=== PATIENT | male | born 1945 | race Caucasian/White ===

== ENCOUNTER 2021-06-11 11:13 | Emergency (ER) | payer MEDICARE, OTHER, SELFPAY ==
[2021-06-11 11:15] VITALS: BP 115/56; PULSE 56; RESP 14; TEMP 36.5; O2SAT 99; BMI 27.3
--- NOTE | 2021-06-11 14:57 | EX.ED.DYSGE1 ---
HPI History of Present Illness Chief Complaint: Cold Sx Informant: patient Onset/Context/Timing Onset: Weeks (1) Context: Gradual Onset Timing: Continuous Quality: malaise, cough Current Severity: Moderate Maximum Severity: Moderate Worsened by: nothing Relieved by: nothing Associated Symptoms Associated Symptoms: myalgias Narrative Narrative: Patient has been had symptoms for 1 week and he had a positive home Covid test yesterday. It said he should see a doctor, so today he presents for evaluation. He has had no dyspnea or diarrhea. He has been drinking fluids. He was vaccinated against Covid. He denies any known fevers. Recent Illness/Hospitalization: No PFSH PFSH Medical History Diabetes Hypercholesteremia Hypertension Allergy/AdvReac Type Severity Reaction Status Date / Time No Known Allergies Allergy Verified 06/11/21 11:17 Social History Smoking Status: Never smoker ROS ROS ED Constitutional Constitutional ED: Reports body ache(s) and malaise; Denies chills or fever(s) Eyes Eyes: Denies change in vision or diplopia ENT ENT ED: Denies rhinorrhea or sore throat Cardiovascular Cardiovascular: Denies chest pain or palpitations Respiratory/Chest Respiratory/Chest: Reports cough; Denies dyspnea or dyspnea on exertion Gastrointestinal Gastrointestinal: Denies abdominal pain, diarrhea, nausea or vomiting Genitourinary Genitourinary ED: Denies dysuria or hematuria Musculoskeletal Musculoskeletal: Denies back pain or neck pain Integumentary Denies abscess or rash Neurologic Neurologic: Denies headache(s), paresthesias or weakness Psychiatric Psychiatric: Denies anxiety or suicidal thoughts EXAM Physical Exam Const Vital Signs: 06/11/21 11:15 06/11/21 13:18 Temperature 97.7 F L Temperature Source Temporal Pulse Rate 56 L Respiratory Rate 14 Respiratory Effort Normal Respiratory Pattern Normal Blood Pressure 115/56 L Blood Pressure Mean 75 Pulse Ox 99 Oxygen Delivery Method Room Air Positive well nourished and well developed General Appearance ED: well developed and NAD HEENT Reports moist mucous membranes normocephalic and atraumatic Eyes PERRL and EOMs intact bilaterally Neck full ROM, no lymphadenopathy, supple and no meningeal signs Resp normal respiratory effort and clear to auscultation bilaterally Cardio regular rate, regular rhythm and no murmurs GI non-tender and non-distended Auscultation: normoactive bowel sounds Palpation: soft Back/Spine no CVA tenderness General Back: other FROM Extremity normal to inspection General Extremety ED: Negative for edema, pulses abnormal or tenderness General Extremity: Negative for edema or pulses abnormal Neuro oriented x3, CN's II-XII intact bilaterally and no sensory deficits noted Sensorium / Orientation: awake and alert Motor Exam: strength 5/5 throughout Skin no rashes or lesions noted and no wounds MDM MDM MDM Narrative Medical decision making narrative: Patient is not tachycardic and his oxygenation is excellent. We performed a rapid test to confirm that he has Covid so that he will qualify for monoclonal antibody infusion, since he has had symptoms for 7 days and is over the age of 65 with history of hypertension and diabetes, he qualifies for all 3 of those reasons. He was referred to the monoclonal antibody clinic, he was given appropriate discharge instructions regarding this and isolation, care for himself, home pulse oximetry monitoring, and reasons to return. Discharge Plan Triage Chief Complaint: Cold Sx ED Provider: Kurt Bethea Dx/Rx/DC Orders Clinical Impression: COVID-19 Instructions: Coronavirus Disease 2019 (COVID-19): Caring for Yourself or Others, ED - COVID Monoclonal AB Infusion ... Other Ambulatory Orders: COVID Outpatient Monoclonal Antibody Referral (Routine) Timeframe: 1 Day Facility: [facility] - Location: [facility] Ordered By: Dr. Kurt Bethea Primary Care Provider: Care Physician,No Primary Referrals: Care Physician,No Primary [Primary Care Provider] - Doctor,Your [STAFF PHYSICIAN] - As Needed Activity Restrictions/Additional Instructions: Try to get a home portable pulse oximeter and closely watch your oxygen levels periodically. If you stay below 90% for more than a minute or so, and/or you are feeling like your breathing is getting worse, return to the emergency department for further evaluation. Disposition Disposition: Home, Self Care
[2021-06-11 15:12] VITALS: BP 122/64; PULSE 55; RESP 16; O2SAT 96
== END 2021-06-11 15:21 | disposition home or self-care (01) ==
PROVIDERS: Emergency Provider Emergency Medicine
DX: U07.1 COVID-19 (principal); E11.9 Type 2 diabetes mellitus without complications; I10 Essential (primary) hypertension
CPT/HCPCS: 87426; 99282

== ENCOUNTER 2021-06-14 15:39 | Inpatient (IN) | payer MEDICARE, OTHER, SELFPAY ==
[2021-06-14] VITALS (10 sets, daily range): BP systolic 94–125; BP diastolic 38–68; PULSE 27–108; RESP 18–48; TEMP 36.3–37.7; O2SAT 94–99; BMI 24.3; BMI 24.9
--- NOTE | 2021-06-14 16:01 | RAD_ITS ---
STUDY: X-RAY CHEST REASON FOR EXAM: Male, 75 years old. cough TECHNIQUE: AP COMPARISON: None FINDINGS: EKG leads project over the chest. Multifocal infiltrates with features commonly reported with COVID pneumonia. There is no demonstrated pleural abnormality. Normal size heart. Normal mediastinum and thomas. Normal visualized pulmonary arteries. There is atherosclerotic calcification of the aortic arch with tortuosity. Normal visualized thoracic spine. Normal visualized ribs, clavicles, and shoulders. There is no demonstrated abnormality of the visualized soft tissue structures of the upper abdomen. RAD/Chest 1 View (Portable) IMPRESSION: Multifocal infiltrates with features commonly reported with COVID pneumonia, although nonspecific. Electronically Signed: Bradley Herr MD ([place]) at 17:32 EST , Service support ,
--- NOTE | 2021-06-14 16:01 | EKG12_ITS ---
Test Reason : COVID 19, SOB Blood Pressure : / mmHG Vent. Rate : 083 BPM Atrial Rate : 083 BPM P-R Int : 174 ms QRS Dur : 118 ms QT Int : 416 ms P-R-T Axes : -16 042 016 degrees QTc Int : 488 ms Normal sinus rhythm Low voltage QRS Right bundle branch block Inferior infarct , age undetermined , cannot be excluded Nonspecific T wave abnormality Abnormal ECG Confirmed by SE GIRON, YANN ([id number]), photography editor IVONNE HAYNES ([id number]) on 06/16/2021 12:21:59 PM Referred By: MILLI Confirmed By:YANN SAEZ MD
--- NOTE | 2021-06-14 16:08 | NURSING ---
NO OLD EKGS
[2021-06-14 16:12] LABS: Absolute Lymphocyte Count 0.99 X10^3/uL (0.83-4.51); Absolute Neutrophil Count 5.5 X10^3/uL (2.0-7.7); Basophil# 0.02 X10^3/uL; Basophil% 0.3 % (0-1); Hematocrit 35.8 % (40-54); Hemoglobin 11.3 g/dL (13.0-16.5); Lymphocyte # 0.99 X10^3/ul (0.83-4.51); Lymphocyte % 14.5 % (19-41); Mean Corp Hgb Conc 31.6 g/dL (32-36); Mean Corpuscular Volume 88.8 fL (80-94); Mean Platelet Vol. 9.7 fl (6.2-12.0); Monocyte# 0.21 X10^3/uL; Monocyte% 3.1 % (0-10); NRBC Flagged by Analyzer 0 % (0-5); Neutrophil # 5.54 X10^3/uL (2.7-7.7); Neutrophil % 81.1 % (47-70); POSITIVE MORPHOLOGY YES; Platelet Count 195 K/mm3 (150-450); RBC Distribution Width CV 13.8 % (11.6-14.6); RBC Distribution Width SD 45.2 fl (35.1-43.9); Red Blood Count 4.03 M/mm3 (4.6-6.2); White Blood Count 6.8 K/mm3 (4.4-11.0)
[2021-06-14 16:19] LABS: Differential Indicated SCAN CRITERIA MET
[2021-06-14 16:21] LABS: D-Dimer Quantitative (DVT/PE) 2.21 FEU/ug/m (0.27-0.49)
[2021-06-14 16:35] LABS: ALB/GLOB Ratio 0.5 RATIO (0.9-2.4); AST(SGOT) 93 U/L (15-37); Alanine Aminotransfer ALT/SGPT 37 U/L (16-61); Albumin, Serum 2.6 g/dL (3.2-5.0); Alkaline Phosphatase 54 U/L (45-117); Anion Gap 17 (5-15); BUN 21 mg/dL (7-18); BUN/Creat Ratio 9.1 RATIO (10-20); Calcium,Total 9.8 mg/dL (8.5-10.1); Chloride 102 mmol/L (98-107); EST Glomerular Filtration Rate 30 mL/min (>60); Est Glom Filt Rate - Afr Amer 36 mL/min (>60); Globulin 4.9 g/dL (2.2-4.2); Glucose 97 mg/dL (74-106); Potassium 3.6 mmol/L (3.5-5.1); Protein, Total 7.5 g/dL (6.4-8.2); Sodium Level 135 mmol/L (136-145); Troponin-I HS 40 pg/mL (3.0-78.0)
[2021-06-14 16:38] LABS: Lactic Acid 3.9 mmol/L (0.4-1.9)
--- NOTE | 2021-06-14 16:42 | ED.VIS.DYS ---
HPI History of Present Illness Chief Complaint: Shortness of Breath Informant: spouse/S.O. Onset/Context/Timing Onset: Days (3) Context: gradual Timing: Continuous Quality: Positive for Dyspnea on exertion Worsened by: Exertion Relieved by: Rest Associated Symptoms Chest Pain: Positive for None Narrative Narrative: Patient presents with shortness of breath that has been getting worse over the past 3 days. states it is gradually getting worse. states his breathing is worse with any exertion and better with rest. states patient has had a cough but has not produced any sputum. states the patient was complaining of a sore throat earlier this week from coughing. states patient has been having some subjective chills denies any fevers or chest pain. Patient and his recently traveled to [place] for his son's . PE Risk Factors: Positive for Cancer and Recent travel; Negative for Recent immobilization and Recent surgery [facility] Medical History (Updated 06/14/21 @ 16:[address] Raheem Petty DO) Diabetes Hypercholesteremia Hypertension Prostate cancer Skin cancer Allergy/AdvReac Type Severity Reaction Status Date / Time No Known Allergies Allergy Verified 06/11/21 11:17 Surgical History (Updated 06/14/21 @ 16:[address] Raheem Petty DO) Hx of rotator cuff surgery Social History Smoking Status: Never smoker ROS ROS ED Constitutional Constitutional ED: Reports chills; Denies fever(s) Eyes Eyes: Denies blurry vision or change in vision ENT ENT ED: Reports sore throat; Denies rhinorrhea Cardiovascular Cardiovascular: Denies chest pain or palpitations Respiratory/Chest Respiratory/Chest: Reports cough and dyspnea Gastrointestinal Gastrointestinal: Denies nausea or vomiting Genitourinary Genitourinary ED: Denies dysuria or hematuria Musculoskeletal Musculoskeletal: Denies back pain or neck pain Integumentary Denies abscess or rash Neurologic Neurologic: Denies headache(s) or weakness Allergic/Immunologic Allergic/Immunologic ED: Denies mouth swelling or urticaria EXAM Physical Exam Const Vital Signs: 06/14/21 15:41 Temperature 98.1 F Temperature Source Oral Pulse Rate 87 Respiratory Rate 24 H Blood Pressure 94/48 L Blood Pressure Mean 63 Pulse Ox 94 Oxygen Delivery Method Room Air Positive well nourished and well developed General Appearance ED: well developed HEENT Reports moist mucous membranes Neck supple and no JVD Resp normal respiratory effort Auscultation: diminished lung sounds diffuse Cardio regular rate and regular rhythm GI non-tender and non-distended Auscultation: normoactive bowel sounds Palpation: soft Neuro CN's II-XII intact bilaterally and no sensory deficits noted Sensorium / Orientation: alert Motor Exam: strength 5/5 throughout MDM MDM MDM Narrative Medical decision making narrative: Patient was given IV fluids and albuterol inhaler. CBC shows a mild anemia with a hemoglobin of 11.3 hematocrit 35.8. D-dimer was elevated at 2.21. Comprehensive metabolic profile showed a BUN of 21 and creatinine of 2.30. There are no prior values for comparison. CO2 was low at 16 and anion gap was elevated at 17. This is likely due to the lactic acidosis. Lactate was elevated at 3.9. Lab Data Labs: Laboratory Results - last 24 hr 06/14/21 06/14/21 06/14/21 15:30 15:30 15:30 WBC 6.8 RBC 4.03 L Hgb 11.3 L Hct 35.8 L MCV 88.8 MCH 28.0 MCHC 31.6 L RDW Std Deviation 45.2 H RDW Coeff of Tiffanie 13.8 Plt Count 195 MPV 9.7 Immature Gran % (Auto) 1.000 H Neut % (Auto) 81.1 H Lymph % (Auto) 14.5 L [place] % (Auto) 3.1 Eos % (Auto) 0.0 Baso % (Auto) 0.3 Absolute Neuts (auto) 5.5 Absolute Lymphs (auto) 0.99 Nucleated RBC % 0 D-Dimer Quant (PE/DVT) 2.21 H* Sodium 135 L Potassium 3.6 Chloride 102 Carbon Dioxide 16.0 L Anion Gap 17 H BUN 21 H Creatinine 2.30 H Estim Creat Clear Calc 29.10 Est GFR (MDRD) Af Amer 36 L Est GFR (MDRD) Non-Af 30 L BUN/Creatinine Ratio 9.1 L Glucose 97 Lactic Acid Calcium 9.8 Total Bilirubin 0.90 AST 93 H ALT 37 Alkaline Phosphatase 54 Troponin I High Sens 40 Total Protein 7.5 Albumin 2.6 L Globulin 4.9 H Albumin/Globulin Ratio 0.5 L 06/14/21 15:30 WBC RBC Hgb Hct MCV MCH MCHC RDW Std Deviation RDW Coeff of Tiffanie Plt Count MPV Immature Gran % (Auto) Neut % (Auto) Lymph % (Auto) [place] % (Auto) Eos % (Auto) Baso % (Auto) Absolute Neuts (auto) Absolute Lymphs (auto) Nucleated RBC % D-Dimer Quant (PE/DVT) Sodium Potassium Chloride Carbon Dioxide Anion Gap BUN Creatinine Estim Creat Clear Calc Est GFR (MDRD) Af Amer Est GFR (MDRD) Non-Af BUN/Creatinine Ratio Glucose Lactic Acid 3.9 H* Calcium Total Bilirubin AST ALT Alkaline Phosphatase Troponin I High Sens Total Protein Albumin Globulin Albumin/Globulin Ratio EKG Initial EKG: Attestation: I personally reviewed and interpreted this EKG as follows: Interpretation: Sinus Rhythm (83), RBBB and Non-Specific ST Changes Prior EKG tracings: not available for review Discharge Plan Triage Chief Complaint: Shortness of Breath ED Provider: Raheem Petty Dx/Rx/DC Orders Primary Care Provider: Ricky Henriquez Referrals: Ricky Henriquez MD [Primary Care Provider] -
[2021-06-14 16:47] LABS: Differential Comment SCANNED
[2021-06-14] MEDS: Enoxaparin 80 MG/0.8 ML Syringe SC (18:39)
--- NOTE | 2021-06-14 19:17 | HP.PCM.HOS_ITS ---
HPI - General HPI Narrative CHRISTIN LY, is a 75 M who presents to the hospital with weakness and increasing dyspnea on exertion and shortness of breath. According to him and his , he started getting sick around 06/05/2021 and had a Covid test at home on 06/10/2021 which came back positive. As he was coughing he came to the hosp ital on 06/11/2021 and has a positive Covid test at that time as well. He was discharged home as at that time he did not require any oxygen to have outpatient follow-up and a referral for monoclonal antibody infusion. Unfortunately he was not able to receive the antibody infusion as he became weaker and was unable to get out of bed in time to go to the bathroom and had accident in the bed. He is still not requiring any oxygen however his p.o. intake has declined significantly and he has what appears to be an JARRED with a creatinine of 2.3 however we do not have any previous lab values for comparison. He also does appear to be acidotic with a bicarb of 16 and anion gap of 17 and a lactic acid of 3.9, blood sugars are normal. Of note he was given a dose of therapeutic Lovenox because his creatinine was elevated to 2.3, and his D-dimer was elevated to 2.21. We are unable to get a CTA of his lungs at this time and unfortunately his chest x-ray is being read as multifocal infiltrates therefore having an abnormal chest x-ray a VQ scan would not be of value either. Given his weakness and his JARRED, will admit for conservative IV fluids and possible placement. [facility] Medical History Diabetes Hypercholesteremia Hypertension Prostate cancer Skin cancer Home Medications abiraterone 1,000 mg PO DAILY 06/14/21 [History Last Taken 3 Days Ago ~06/11/21] dulaglutide [Trulicity] 1.5 mg SUBCUT SA 06/14/21 [History Last Taken 06/04/21] furosemide 20 mg PO DAILY 06/14/21 [History Last Taken 3 Days Ago ~06/11/21] gemfibrozil 600 mg PO BID 06/14/21 [History Last Taken 3 Days Ago ~06/11/21] lisinopril 20 mg PO DAILY 06/14/21 [History Last Taken 3 Days Ago ~06/11/21] metformin 850 mg PO BID 06/14/21 [History Last Taken 3 Days Ago ~06/11/21] metoprolol succinate 100 mg PO DAILY 06/14/21 [History Last Taken 3 Days Ago ~06/11/21] pantoprazole 40 mg PO DAILY 06/14/21 [History Last Taken 3 Days Ago ~06/11/21] prednisone 5 mg PO BID 06/14/21 [History Last Taken 3 Days Ago ~06/11/21] rosuvastatin 20 mg PO DAILY 06/14/21 [History Last Taken 3 Days Ago ~06/11/21] Allergy/AdvReac Type Severity Reaction Status Date / Time No Known Allergies Allergy Verified 06/11/21 11:17 Family History (Updated 06/14/21 @ 19:[address] Randy Kathleen MD) Other Diabetes Heart disease Surgical History Hx of rotator cuff surgery Social History Smoking Status: Never smoker ROS Constitutional Constitutional: Reports chills; Denies fatigue, fever(s) or malaise Eyes Eyes: Denies blurry vision ENT HEENT: Denies headache(s) or nasal discharge Cardiovascular Cardiovascular: Reports dyspnea on exertion; Denies chest pain or syncope Respiratory/Chest Respiratory/Chest: Reports cough and shortness of breath at rest; Denies shortness of breath with exertion Gastrointestinal Gastrointestinal: Denies constipation, diarrhea, nausea or vomiting Genitourinary Genitourinary: Denies dysuria Neurologic Neurologic: Denies focal weakness, numbness or tremor(s) Psychiatric Psychiatric: Denies anxiety or depression Vital Signs Vital Signs Vital Signs: 06/14/21 15:41 06/14/21 17:08 06/14/21 17:13 Temperature 98.1 F 98.1 F Temperature Source Oral Oral Pulse Rate 87 84 Respiratory Rate 24 H 22 H Respiratory Effort Normal Respiratory Depth Normal Respiratory Pattern Normal Blood Pressure 94/48 L 108/38 L Blood Pressure Mean 63 61 Pulse Ox 94 96 Oxygen Delivery Method Room Air Room Air Room Air 06/14/21 18:46 Temperature 98.6 F Temperature Source Oral Pulse Rate 27 L Respiratory Rate 26 H Respiratory Effort Respiratory Depth Respiratory Pattern Blood Pressure 105/44 L Blood Pressure Mean 64 Pulse Ox 97 Oxygen Delivery Method Room Air Weight Weight: 174 lb 6.17 oz Body Mass Index (BMI) 24.3 Physical Exam Const alert and oriented x3 General Appearance: cooperative and ill appearing HEENT normocephalic Mouth: dry mucous membranes Eyes PERRL, EOMs intact bilaterally and conjunctivae normal Neck supple and no JVD Resp normal respiratory effort, no retractions and no use of accessory muscles Auscultation: diminished lung sounds; Negative for crackles, rales, rhonchi or wheezes Cardio regular rate, regular rhythm, S1 normal heart sound, S2 normal heart sound and no murmurs GI soft to palpation, non-tender and non-distended; Negative for hepatosplenomegaly Extremity no clubbing, cyanosis or edema Skin no rashes or lesions noted Neuro no focal motor deficits and no sensory deficits noted Psych affect normal Appearance: appropriate Results Lab / Micro Data Result Diagrams: 06/14/21 15:30 06/14/21 15:30 Labs: Laboratory Results - last 24 hr 06/14/21 15:30: WBC 6.8, RBC 4.03 L, Hgb 11.3 L, Hct 35.8 L, MCV 88.8, MCH 28.0, MCHC 31.6 L, RDW Std Deviation 45.2 H, RDW Coeff of Tiffanie 13.8, Plt Count 195, MPV 9.7, Immature Gran % (Auto) 1.000 H, Neut % (Auto) 81.1 H, Lymph % (Auto) 14.5 L , [place] % (Auto) 3.1, Eos % (Auto) 0.0, Baso % (Auto) 0.3, Absolute Neuts (auto) 5.5, Absolute Lymphs (auto) 0.99, Nucleated RBC % 0, Differential Comment SCANNED 06/14/21 15:30: D-Dimer Quant (PE/DVT) 2.21 H* 06/14/21 15:30: Sodium 135 L, Potassium 3.6, Chloride 102, Carbon Dioxide 16.0 L , Anion Gap 17 H, BUN 21 H, Creatinine 2.30 H, Estim Creat Clear Calc 29.10, Est GFR (MDRD) Af Amer 36 L, Est GFR (MDRD) Non-Af 30 L, BUN/Creatinine Ratio 9.1 L, Glucose 97, Calcium 9.8, Total Bilirubin 0.90, AST 93 H, ALT 37, Alkaline Phosphatase 54, Troponin I High Sens 40, Total Protein 7.5, Albumin 2.6 L, Globulin 4.9 H, Albumin/Globulin Ratio 0.5 L 06/14/21 15:30: Lactic Acid 3.9 H* Radiology Impression Chest X-Ray 06/14/21 16:01 IMPRESSION: Multifocal infiltrates with features commonly reported with COVID pneumonia, although nonspecific. Electronically Signed: Bradley Herr MD ([place]) at 17:32 EST , Service support , Assessment & Plan Assessment/Plan (1) COVID-19: PLAN: 1. Weakness secondary to COVID-19/metabolic acidosis secondary to lactic acidosis with likely JARRED ?He is about 10 days out from onset of symptoms therefore between that and his elevated creatinine he does not meet criteria for remdesivir ?We will give him some IV fluids and reevaluate his creatinine in the morning, this may be indicative of an JARRED ?Given the elevation in his D-dimer and the inability to perform confirmatory test we will proceed with therapeutic anticoagulation and the possibility that this could be PEs that are exacerbating his shortness of breath despite the fact that he is not tachycardic on admission or hypoxic ?We will start him on Decadron given the weakness and monitor his blood sugars given his diabetes ?We will hold his home Lasix secondary to his possibly elevated creatinine and the need for IV fluids ?Anion gap metabolic acidosis likely secondary to his lactic acidosis unsure as to the etiology of his lactic acidosis at this time will give IV fluids and recheck 2. HTN/HLD ?Blood pressures are stable, given elevation in creatinine we will hold his lisinopril and Lasix ?Continue with metoprolol ?Continue with IV fluids for 1 L ?Continue with gemfibrozil and Crestor 3. DM2 ?We will hold his Trulicity and metformin ?Continue with sliding scale insulin and Accu-Cheks AC at bedtime ?Given the addition of Decadron will monitor his blood sugars and make adj ustments as necessary 4. GERD ?Stable ?Continue with PPI 5. Prostate cancer ?He is on prednisone and abiraterone this is usually prescribed for prostate cancer, will hold while here in the hospital DVT: Therapeutic Lovenox Charges/Coding Visit Charges Inpatient E&M: 91339 Init Hosp L3
[2021-06-14 20:07] LABS: Reflex Lactate? Y
--- NOTE | 2021-06-14 20:09 | NURSING ---
Pt states he got two pfizer vaccines in June of 2020, unsure of dates.
--- NOTE | 2021-06-14 20:12 | PCS.PANDOC ---
PANDEMIC DOCUMENTATION INITIATED: Date: 02/21/2021 Time: 190
[2021-06-14] MEDS: 0.9% Normal Saline 1,000 ML 100 ML IV (21:15)
[2021-06-14] MEDS: dexAMETHasone 4 MG Tablet 6 MG PO (21:31)
[2021-06-14 22:37] LABS: Lactic Acid 1.4 mmol/L (0.4-1.9)
--- NOTE | 2021-06-14 22:41 | CT_ITS ---
EXAM: CT HEAD WITHOUT INTRAVENOUS CONTRAST CLINICAL INDICATION: speech deficits TECHNIQUE: Multiple axial images were obtained of the head without intravenous contrast. CTDI vol (mGy): 44 DLP vol (mGy-cm): [address] exam was performed using one or more of the following dose reduction techniques: automated exposure control, adjustment of the mA and/or kV according to patient size, and/or use of iterative reconstruction technique. This report was created using Ring report generation technology. COMPARISON: None. FINDINGS: BRAIN AND EXTRA-AXIAL SPACES: Chronic ischemic small vessel white matter disease. Diffuse parenchymal atrophy. No acute hemorrhage or acute infarct. No intracranial mass or mass effect. Posterior fossa structures are unremarkable. No hydrocephalus. Basal cisterns are patent. BONES/JOINTS: Unremarkable. No discrete lytic or blastic abnormalities. VASCULATURE: Atherosclerosis calcifications involving the carotid siphons and vertebrobasilar arteries. SINUSES: Moderate paranasal sinus mucosal thickening with air-fluid levels involving the sphenoid and maxillary sinuses bilaterally. MASTOID AIR CELLS: Unremarkable. Clear. ORBITS: Visualized globes, extraocular muscles, optic nerves and retrobulbar fat appear unremarkable. CT/Brain/Head without Contrast IMPRESSION: 1. No acute intracranial pathology. 2. Acute on chronic paranasal sinusitis. Electronically Signed: Landen Hernandez MD at 0:17 EST Tel , Service support ,
--- NOTE | 2021-06-14 22:45 | PN_ITS ---
Progress Note Nurse reported patient is aphasic. Nurse reported out discussed with ED nurses patient's aphasia was no difference. Nurse report that she discussed the case with family and per family it is not patient baseline. Was at emergent department and discussed case with emergent department doctor who saw patient at the ED. Per emergency part of the patient was aphasic. Per emergent department doctor he discussed with family and that was not new. We will get head CT. Nurse report that patient is significantly confused. Will check NIH. Check a mmonia level check TSH. Check vitamin B12.
[2021-06-14 23:25] LABS: Thyroid Stim Hormone (TSH) 0.32 uIU/mL (0.358-3.74)
[2021-06-14 23:46] LABS: Bedside Glucose 73 mg/dL (70-110)
[2021-06-14 23:46] LABS: Bedside Glucose 74 mg/dL (70-110)
[2021-06-15] VITALS (18 sets, daily range): BP systolic 97–120; BP diastolic 49–83; PULSE 60–90; RESP 16–38; TEMP 35.7–37.1; O2SAT 90–98
[2021-06-15] MEDS: Insulin Lispro 100 UNIT/ML INSULN.PEN SC (06:39)
[2021-06-15 06:50] LABS: Bedside Glucose 165 mg/dL (70-110)
[2021-06-15 07:01] LABS: Absolute Lymphocyte Count 0.41 X10^3/uL (0.83-4.51); Absolute Neutrophil Count 8.8 X10^3/uL (2.0-7.7); Basophil# 0.02 X10^3/uL; Basophil% 0.2 % (0-1); Hematocrit 34.3 % (40-54); Lymphocyte # 0.41 X10^3/ul (0.83-4.51); Lymphocyte % 4.1 % (19-41); Mean Corp Hgb Conc 29.2 g/dL (32-36); Mean Corpuscular Hgb 28.5 pg (27.0-32.0); Mean Corpuscular Volume 97.7 fL (80-94); Mean Platelet Vol. 9.7 fl (6.2-12.0); Monocyte# 0.24 X10^3/uL; Monocyte% 2.4 % (0-10); NRBC Flagged by Analyzer 0 % (0-5); Neutrophil % 89.1 % (47-70); POSITIVE DIFFERENTIAL YES; POSITIVE MORPHOLOGY YES; Platelet Count 160 K/mm3 (150-450); RBC Distribution Width SD 50.3 fl (35.1-43.9); Red Blood Count 3.51 M/mm3 (4.6-6.2); White Blood Count 9.9 K/mm3 (4.4-11.0)
[2021-06-15 07:08] LABS: Differential Indicated SCAN CRITERIA MET
[2021-06-15 07:50] LABS: Bedside Glucose 187 mg/dL (70-110)
--- NOTE | 2021-06-15 07:57 | PCM.PN.HOSP ---
Subjective Subjective Confusion and aphasia noted when he arrived to floor. Conference Planning Manager notified and head CT ordered. Apparently, pt was like this in the ED. I discussed with the patient's dtr who said she noted that the patient was confused, dysarthric between [id number] yesterday. Normally, he is independent and speaks coherently. Objective Data Objective Data Vital Signs: Vital Signs Temp Pulse Resp BP Pulse Ox 36.9 C 60 20 H 105/55 L 94 06/15/21 06:00 06/15/21 07:47 06/15/21 07:47 06/15/21 07:47 06/15/21 07:47 Oxygen Flow Rate (L/min) 3 Oxygen Delivery Method Nasal Cannula Weight: 79.4 kg Body Mass Index (BMI) 24.9 Intake & Output: Intake and Output for Last 24 Hours 06/13/21 06/14/21 06/15/21 23:59 23:59 23:59 Intake Total 500 / 500 973.33 / 973.33 Output Total 200 / 200 200 / 200 Balance 300 / 300 773.33 / 773.33 Lab / Micro Data Result Diagrams: 06/15/21 06:38 06/14/21 15:30 Labs: Laboratory Results - last 24 hr 06/14/21 15:30: WBC 6.8, RBC 4.03 L, Hgb 11.3 L, Hct 35.8 L, MCV 88.8, MCH 28.0, MCHC 31.6 L, RDW Std Deviation 45.2 H, RDW Coeff of Tiffanie 13.8, Plt Count 195, MPV 9.7, Immature Gran % (Auto) 1.000 H, Neut % (Auto) 81.1 H, Lymph % (Auto) 14.5 L, Hawkins % (Auto) 3.1, Eos % (Auto) 0.0, Baso % (Auto) 0.3, Absolute Neuts (auto) 5.5, Absolute Lymphs (auto) 0.99, Nucleated RBC % 0, Differential Comment SCANNED 06/14/21 15:30: D-Dimer Quant (PE/DVT) 2.21 H* 06/14/21 15:30: Sodium 135 L, Potassium 3.6, Chloride 102, Carbon Dioxide 16.0 L, Anion Gap 17 H, BUN 21 H, Creatinine 2.30 H, Estim Creat Clear Calc 29.10, Est GFR (MDRD) Af Amer 36 L, Est GFR (MDRD) Non-Af 30 L, BUN/Creatinine Ratio 9.1 L, Glucose 97, Calcium 9.8, Total Bilirubin 0.90, AST 93 H, ALT 37, Alkaline Phosphatase 54, Troponin I High Sens 40, Total Protein 7.5, Albumin 2.6 L, Globulin 4.9 H, Albumin/Globulin Ratio 0.5 L 06/14/21 15:30: Lactic Acid 3.9 H* 06/14/21 15:30: TSH 0.32 L 06/14/21 21:30: POC Glucose 73 06/14/21 21:45: Lactic Acid 1.4 06/14/21 22:39: POC Glucose 74 06/14/21 23:05: Ammonia 16.0 06/15/21 06:37: POC Glucose 165 H 06/15/21 06:38: WBC 9.9, RBC 3.51 L, Hgb 10.0 L, Hct 34.3 L, MCV 97.7 H D, MCH 28.5, MCHC 29.2 L D, RDW Std Deviation 50.3 H, RDW Coeff of Tiffanie 14.0, Plt Count 160, MPV 9.7, Immature Gran % (Auto) 4.200 H, Neut % (Auto) 89.1 H, Lymph % (Auto) 4.1 L, Hawkins % (Auto) 2.4, Eos % (Auto) 0.0, Baso % (Auto) 0.2, Absolute Neuts (auto) 8.8 H, Absolute Lymphs (auto) 0.41 L, Nucleated RBC % 0 06/15/21 07:46: POC Glucose 187 H Radiography Diagnostic Testing: Radiology Impression Chest X-Ray 06/14/21 16:01 IMPRESSION: Multifocal infiltrates with features commonly reported with COVID pneumonia, although nonspecific. Electronically Signed: Bradley Herr MD (Bro[place]) at 17:32 EST , Service support , Brain CT 06/14/21 22:41 IMPRESSION: 1. No acute intracranial pathology. 2. Acute on chronic paranasal sinusitis. Electronically Signed: Landen Hernandez MD at 0:17 EST Tel , Service support , NIHSS NIHSS 1a. Level of Consciousness: Not alert; 1b. LOC Questions: Answers one question correctly. 1c. LOC Commands: Performs one task correctly. 2. Best Gaze: Normal 3. Visual: No visual loss 4. Facial Palsy: Normal symmetrical movements 5a. Left Arm: No drift; arm holds 90 (or 45) degrees for full 10 seconds 5b. Right Arm: Drift; arm drifts downward but doesn?t hit the bed 6a. Left Leg: No drift; leg holds 30-degree position for full 5 seconds 6b. Right Leg: No drift; leg holds 30-degree position for full 5 seconds 7. Limb Ataxia: Present in 1 limb 8. Sensory: Normal; no sensory loss 9. Best Language: Geks-fa-zyikmrrv aphasia; 10. Dysarthria: Hkzg-ah-sialousl dysarthria; 11. Extinction and Inattention: No abnormality Total: 7 Stroke Questions Stroke Team Activated: Yes a.Reviewed Inclusion/Exclusion criteria: Yes Was Patient considered for Endovascular Intervention?: Yes IV TPA Administered: No No contraindications for IV Alteplase (t-PA) administration.: No Risks, Benefits, Alternatives Discussed: Yes Physical Exam Const Constitutional Narrative: garbled speech. afebrile Orientation / Consciousness: confused Resp normal respiratory effort, no retractions, no use of accessory muscles and clear to auscultation bilaterally Cardio regular rate, regular rhythm, S1 normal heart sound and S2 normal heart sound GI normal to inspection, nondistended, normoactive bowel sounds, soft to palpation, non-tender and non-distended Extremity normal to inspection Skin no rashes or lesions noted Neuro Neuro Narrative: see NIHSS Psych affect normal Assessment & Plan Assessment/Plan (1) COVID-19: (2) CVA (cerebral vascular accident): QUALIFIERS: CVA mechanism: unspecified Qualified Code(s): I63.9 - Cerebral infarction, unspecified (3) JARRED (acute kidney injury): PLAN: 1. COVID 19 onset around 06/06 vaccinated continue dexamethasone no remd as he is more than 10 days out pluse JARRED 2. Acute CVA last normal 06/14 between [id number] per family NIH [address] unremarkable stroke team activated this AM start aspirin MRI, echo could be metabolic encephalopathy, but need to rule out CVA first DW [facility] neurology: she recommended repeat stat head CT, MRI brain, MRA H+N. Check echo 3. JARRED suspected hold diuretics gentle IVF 4. Prostate cancer complicates care continue prednisone as he is on this chronically 5. Elevated D-dimer on empiric enoxaparin change to heparin gtt given JARRED consider VQ to rule out PE when more stable 6. DM2 hold home medications SSI 7. VTE prophylaxis: not indicated as he is anticoagulated. Charges/Coding Visit Charges Inpatient E&M: 47062 Subs Hosp L3
[2021-06-15 08:00] LABS: ALB/GLOB Ratio 0.4 RATIO (0.9-2.4); AST(SGOT) 116 U/L (15-37); Alanine Aminotransfer ALT/SGPT 45 U/L (16-61); Albumin, Serum 1.8 g/dL (3.2-5.0); Alkaline Phosphatase 48 U/L (45-117); Anion Gap 17 (5-15); BUN 30 mg/dL (7-18); BUN/Creat Ratio 9.5 RATIO (10-20); Calcium,Total 8.6 mg/dL (8.5-10.1); Chloride 105 mmol/L (98-107); Creatinine, Serum 3.16 mg/dL (0.70-1.30); EST Glomerular Filtration Rate 20 mL/min (>60); Est Glom Filt Rate - Afr Amer 25 mL/min (>60); Estimated Creatinine Clearance 19.89 ml/min; Globulin 4.5 g/dL (2.2-4.2); Glucose 171 mg/dL (74-106); Potassium 4.2 mmol/L (3.5-5.1); Protein, Total 6.3 g/dL (6.4-8.2); Sodium Level 131 mmol/L (136-145)
--- NOTE | 2021-06-15 08:12 | MRI_ITS ---
STUDY: MRA OF THE HEAD WITHOUT CONTRAST REASON FOR EXAM: Male, 75 years old. CVA, aphasia, confusion , COVID + TECHNIQUE: 3-D [id number] (TOF) imaging was performed with MIPs. The study was performed unenhanced. COMPARISON: None. FINDINGS: Normal bilateral petrous carotid arteries. Normal right cavernous carotid artery with a normal supraclinoid bifurcation. Normal left cavernous carotid artery with a normal supraclinoid bifurcation. Normal right A1 segments of the anterior cerebral artery. Normal left A1 segments of the anterior cerebral artery. Normal intact anterior communicating artery (ACOM). Normal bilateral A2 segments of the anterior cerebral arteries. Normal right M1 and M2 segments of the middle cerebral arteries, with a normal M1 bifurcation. Normal left M1 and M2 segments of the middle cerebral arteries, with a normal M1 bifurcation. There is a persistent origin of the right posterior cerebral artery with absence of the P1 segment of the right posterior cerebral artery. Normal left posterior communicating artery (PCOM). Normal bilateral vertebral arteries. Normal basilar artery with a normal basilar bifurcation. The visualized bilateral superior cerebellar (SCA) arteries are normal. Normal bilateral P1, P2 and visualized P3 segments of the posterior cerebral arteries. There is no demonstrated aneurysm of the wrangell of Alonzo. There is no major vessel occlusion or hemodynamically significant stenosis. There is no demonstrated abnormality of the visualized brain. MRI/MRA Head ONLY without Contrast IMPRESSION: Normal MRA of the head Electronically Signed: Jerome Pope MD at 11:45 EST Tel , Service support ,
--- NOTE | 2021-06-15 08:12 | MRI_ITS ---
STUDY: MRA NECK WITHOUT CONTRAST REASON FOR EXAM: Male, 75 years old. CVA, aphasia, confusion , COVID + TECHNIQUE: Source images were obtained, MIPs were performed. The study was performed unenhanced. COMPARISON: None. FINDINGS: RIGHT CAROTID ARTERIES: Normal right common carotid artery (CCA). Normal right common carotid bulb. Normal origin of the right internal carotid (ICA) artery without a hemodynamically significant stenosis. Normal visualized cervical portion of the right internal carotid artery. Normal origin of the right external carotid artery (ECA). LEFT CAROTID ARTERIES: Normal left common carotid artery (CCA). Normal left common carotid bulb. Normal origin of the left internal carotid (ICA) artery without a hemodynamically significant stenosis. Normal visualized cervical portion of the left internal carotid artery. Normal origin of the left external carotid artery (ECA). VERTEBRAL ARTERIES: Normal antegrade flow within the bilateral vertebral artery without a hemodynamically significant stenosis. MRI/MRA Neck without Contrast IMPRESSION: Normal bilateral cervical carotid and vertebral arteries. Electronically Signed: Jerome Pope MD at 11:46 EST Tel , Service support ,
--- NOTE | 2021-06-15 08:12 | MRI_ITS ---
STUDY: MRI BRAIN WITHOUT CONTRAST REASON FOR EXAM: Male, 75 years old. CVA, aphasia, confusion , COVID + TECHNIQUE: Standardized multiplanar fat and water weighted pulse sequences were obtained. COMPARISON: CT earlier today FINDINGS: There is moderate cerebral atrophy with widening of the extra-axial spaces and ventricular dilatation. There are a limited number of small white matter hyperintensities, distributed throughout the deep white matter tracts of the cerebral hemispheres, consistent with mild chronic white matter ischemic changes. There is no evidence for recent intracranial ischemia or other cause of cytotoxic edema on diffusion weighted imaging (DWI). Normal T2* images of the brain without demonstrated susceptibility artifact. There is no demonstrated hemosiderin stain. Normal bilateral basal ganglia. Normal thalami. There is no extra-axial fluid accumulation. Normal flow voids within the major intracranial circulation suggesting patency by spin echo criteria. Normal sella turcica, pituitary gland, infundibular stalk, optic chiasm and hypothalamus. Normal tectal plate and pineal gland. Normal midbrain, reema and medulla. Normal cerebellum. Normal basal cisterns. Normal bilateral temporal bones. Normal bilateral internal auditory canals. There are bilateral ocular lens implants with otherwise normal intraorbital contents. There is mucoperiosteal inflammatory disease of the paranasal sinuses consistent with moderate chronic sinusitis. Normal calvarium and skull base. Normal visualized soft tissue structures. Normal visualized upper cervical spine. MRI/Brain without Contrast IMPRESSION: Involutional changes of the brain, as described above. No acute infarct. Electronically Signed: Jerome Pope MD at 11:43 EST Tel , Service support ,
--- NOTE | 2021-06-15 08:13 | ECHOD_ITS ---
Reason For Study: TIA/STROKE, COVID Procedure This was a 2D Doppler, Color Flow transthoracic echocardiogram. Exam performed portable in patient room. The exam was abbreviated due to the COVID 19 protocol. Left Ventricle Normal LV size. The estimated ejection fraction is 45 %. Rhodelia : Hypokinetic. Mid-anteroseptal : Mildly hypokinetic. There are regional wall motion abnormalities as specified. Right Ventricle Normal RV size. Normal systolic function. Atria Normal left atrium. Normal right atrium. Bubble contrast study negative for right to left interatrial shunt. Tricuspid Valve Normal tricuspid valve. Mild to moderate (1-2+) tricuspid valve insufficiency. Pulmonary artery systolic pressure is 36 mmHg. Pericardium/Pleural No pericardial effusion. Medication Performed a rapid injection of agitated mix of 9 cc saline and 1cc air to assess for atrial septal defect. MMode/2D Measurements & Calculations LVIDd: 5.3 cm IVSd: 0.97 cm LVIDs: 3.8 cm LVPWd: 0.96 cm LVAd ap4: 38.8 cm2 FS: 29.6 % LVLd ap4: 8.6 cm EDV(MOD-sp4): 142.0 ml EDV(sp4-el): 148.3 ml LVAs ap4: 22.7 cm2 LVLs ap4: 7.0 cm ESV(MOD-sp4): 60.9 ml ESV(sp4-el): 62.2 ml EF(MOD-sp4): 57.1 % EF(sp4-el): 58.1 % SV(MOD-sp4): 81.1 ml SV(sp4-el): 86.2 ml Doppler Measurements & Calculations TR max zuleima: 286.6 cm/sec TR max P.9 mmHg ECHO/Echo Complete Interpretation Summary Normal LV size. The estimated ejection fraction is 45 %. Rhodelia : Hypokinetic. Mid-anteroseptal : Mildly hypokinetic Pulmonary artery systolic pressure is 36 mmHg. Ordering Physician: Raheem Molina Referring Physician: CANDELARIO CULP Performed By: Barbie Parkinson RDCS
--- NOTE | 2021-06-15 08:14 | CT_ITS ---
STUDY: CT HEAD STROKE PROTOCOL W/O CONTRAST INJECTION REASON FOR EXAM: Male, 75 years old. Neuro deficit, acute, stroke suspected RADIATION DOSAGE (If Supplied By Facility): CTDIvol = ( 44.99 ) mGy, DLP = ( 762.36 ) mGycm TECHNIQUE: Transaxial CT imaging of the brain was performed without administration of intravenous contrast material. Individualized dose optimization techniques were used for this CT. COMPARISON: No relevant priors. FINDINGS: Normal soft tissue structures. Normal calvarium. There is moderate cerebral atrophy with widening of the extra-axial spaces and ventricular dilatation. There are areas of decreased attenuation within the white matter tracts of the supratentorial brain, consistent with microvascular disease changes. Normal basal ganglia and thalami. Normal brainstem. Normal cerebellum. There is no intracranial hemorrhage. There are no findings of an acute ischemic infarction. Pansinusitis. CT/STROKE Brain/Head without Cont IMPRESSION: Chronic involutional changes of the brain. Pansinusitis. N.B. : The above Results were Read Back by Rafy Candelaria MD to GRACIE POWERS and understanding confirmed on 06/15/2021 08:53:43 (ET). Electronically Signed: Rafy Candelaria MD at 8:54 EST , Service support ,
--- NOTE | 2021-06-15 08:36 | NURSING ---
Pt somnolent but arouses/eye opens to physical stimuli but unable to stay attentive and follow directions for NIHSS. Answers birthdate appropriately with garbled speech but falls asleep mid sentence before stating year. Pt gripped hands equally bilaterally but would not follow directions to hold arms and legs up for NIHSS and would go immediately back to deep sleep/snoring. Some scoring on NIHSS is inferred based on limited pt response.
[2021-06-15 08:46] LABS: Troponin-I HS 65 pg/mL (3.0-78.0)
[2021-06-15] MEDS: 0.9% Normal Saline 1,000 ML 150 ML IV (08:49)
[2021-06-15 08:52] LABS: Vitamin B12 > 2000 pg/mL (211-911)
[2021-06-15] MEDS: 0.9% Saline Lock 10 ML Syringe IV (09:43)
[2021-06-15 10:00] LABS: International Normalized Ratio 1.2; Prothrombin Time (Protime)PT. 14.3 SECONDS (11.7-14.9)
[2021-06-15 10:01] LABS: Partial Thromboplast Time 52.3 Seconds (24.1-36.2)
[2021-06-15] MEDS: HEPARIN/D5w 25,000 UNITS 25,000 UNITS/250 ML IV.SOLN. 11 UNITS IV (11:48)
--- NOTE | 2021-06-15 11:58 | NURSING ---
unable to complete full NIH due to lethargy
[2021-06-15 12:10] LABS: Bedside Glucose 179 mg/dL (70-110)
--- NOTE | 2021-06-15 12:38 | CASEMGMT ---
RN CM Assessment Patient sleeping at time of assessment. Called Anabell- whom answered but asked this content writer to s/w Son in law Rhys as she is currently having a difficult time. Introduced self to Rhys whom was able to answer some questions but provided phone to his (Patient daughter) Mabel whom answered remaining assessment questions that Rhys did not know. ?Care providers, pharmacy, and demographics verified. Admit Dx: Covid Re-Admit: No Barriers/Issues: Per chart review- recent travel to [place] to lay his son to rest. Dtr Mabel, her Rhys and their dtr are all Covid Positive- they live in [place]. Patient Anabell is Covid positive but on the mend. Has another son that lives in [place]. Patient tested Covid Positive at [facility]. PCP: Does not have a PCP. Has been getting all care with Dr Ricky Henriquez-[facility] for Cancer. Specialists: Onc-Ricky Henriquez at [facility] Preferred Pharmacy: [facility] Insurance: [facility] A/B, Comm Rx Benefit:?Yes- [employer] LNOK: Anabell Smith LW/HPOA: Has completed a long time ago in [place], does not think has a Copy. Aware [facility] social media community manager does complete AD if wishes to re-do them at a later time. HPOA- Anabell Smith or Dtr Mabel Emery. Living Arrangements:?Lives with in a 2SH, has [facility] set up. 3 steps to enter home. ADL?s: Independent with ambulation and ADLs. Transportation: Both patient had drive, however is limited with her driving. DME: BP cuff, Glucometer HHC: None SNF: None Goal: Per dtr Mabel- patient is very independent and stubborn and knows he will prefer to go home and not want to go to SNF. States it will depend at time of DC how patient is doing as her mom is petite, ill currently and was having a difficult time assisting him. States her family is all ill and unable to assist at this time. Aware only SNF taking Covid positive is [facility]. Verbally went over some HH options and DME options. States no preference as long as local for HH/DME- [facility], [facility]. Aware RNCM will continue to follow for care coordination needs. DC PLAN: Home with HH (No preference as long as local) and possible home O2/walker (No preference as long as local- [facility]ickey, [facility]). F/u mobility. IRLANDA Wilkinson
--- NOTE | 2021-06-15 14:21 | NURSING ---
unable to do swallow eval due to lethargy, assessment remains the same, unable to complete full NIH
[2021-06-15 16:45] LABS: Bedside Glucose 146 mg/dL (70-110)
[2021-06-15 19:00] LABS: Partial Thromboplast Time 144.2 Seconds (24.1-36.2)
[2021-06-15 23:06] LABS: Bedside Glucose 122 mg/dL (70-110)
[2021-06-16] VITALS (9 sets, daily range): BP systolic 113–156; BP diastolic 58–91; PULSE 68–93; RESP 16–18; TEMP 36.2–36.7; O2SAT 94–97
[2021-06-16 03:59] LABS: Partial Thromboplast Time 89.2 Seconds (24.1-36.2)
[2021-06-16 04:10] LABS: Cholesterol 90 mg/dL (200); High Density Lipoprotein 20 mg/dL; Triglycerides 170 mg/dL; Very Low Density Lipoprotein 34 mg/dL (5-40)
[2021-06-16 04:24] LABS: Hematocrit 28.3 % (40-54); Hemoglobin 9.9 g/dL (13.0-16.5); Mean Corpuscular Hgb 28.9 pg (27.0-32.0); Mean Corpuscular Volume 82.5 fL (80-94); Mean Platelet Vol. 9.3 fl (6.2-12.0); Platelet Count 211 K/mm3 (150-450); RBC Distribution Width CV 13.9 % (11.6-14.6); RBC Distribution Width SD 41.7 fl (35.1-43.9); Red Blood Count 3.43 M/mm3 (4.6-6.2); White Blood Count 11.8 K/mm3 (4.4-11.0)
[2021-06-16 06:35] LABS: Bedside Glucose 105 mg/dL (70-110)
[2021-06-16 10:56] LABS: Partial Thromboplast Time 52.2 Seconds (24.1-36.2)
[2021-06-16] MEDS: Heparin Injection (Vial) 5,000 UNIT/ML VIAL IV ×2 (11:19→18:31)
[2021-06-16] MEDS: 0.9% Saline Lock 10 ML Syringe IV (11:23)
[2021-06-16 11:30] LABS: Bedside Glucose 107 mg/dL (70-110)
[2021-06-16 16:41] LABS: Bedside Glucose 111 mg/dL (70-110)
--- NOTE | 2021-06-16 17:20 | PCM.PN.HOSP ---
Subjective Subjective Doing better. More alert. Denies SOB. Denies h/o CVA. Objective Data Objective Data Vital Signs: Vital Signs Temp Pulse Resp BP Pulse Ox 36.6 C 78 18 133/66 H 94 06/16/21 16:30 06/16/21 16:30 06/16/21 16:30 06/16/21 16:30 06/16/21 16:30 Oxygen Flow Rate (L/min) 3 Oxygen Delivery Method Nasal Cannula Weight: 80.1 kg Body Mass Index (BMI) 24.9 Intake & Output: Intake and Output for Last 24 Hours 06/14/21 06/15/21 06/16/21 23:59 23:59 23:59 Intake Total 500 / 500 2058.03 / 2158.03 243.47 / 243.47 Output Total 200 / 200 200 / 200 600 / 600 Balance 300 / 300 1858.03 / 1958.03 -356.53 / -356.53 Lab / Micro Data Result Diagrams: 06/16/21 03:34 06/15/21 06:38 Labs: Laboratory Results - last 24 hr 06/15/21 17:55: APTT 144.2 H* 06/15/21 21:37: POC Glucose 122 H 06/16/21 03:34: Triglycerides 170, Cholesterol 90, LDL Cholesterol 36, VLDL Cholesterol 34, HDL Cholesterol 20 L 06/16/21 03:34: APTT 89.2 H 06/16/21 03:34: WBC 11.8 H, RBC 3.43 L, Hgb 9.9 L, Hct 28.3 L, MCV 82.5 D, MCH 28.9, MCHC 35.0 D, RDW Std Deviation 41.7, RDW Coeff of Tiffanie 13.9, Plt Count 211, MPV 9.3 06/16/21 06:28: POC Glucose 105 06/16/21 10:30: APTT 52.2 H 06/16/21 11:18: POC Glucose 107 06/16/21 16:31: POC Glucose 111 H Physical Exam Const alert, oriented x3 and no apparent distress Constitutional Narrative: speech coherent. HEENT head/scalp atraumatic Head and Scalp: normocephalic Resp normal respiratory effort, no retractions, no use of accessory muscles and clear to auscultation bilaterally Cardio regular rate, regular rhythm, S1 normal heart sound and S2 normal heart sound GI normal to inspection, nondistended, normoactive bowel sounds, soft to palpation, non-tender and non-distended Skin no rashes or lesions noted Neuro no focal motor deficits Sensorium / Orientation: awake and alert Motor Exam: strength 5/5 throughout Assessment & Plan Assessment/Plan (1) COVID-19: (2) CVA (cerebral vascular accident): QUALIFIERS: CVA mechanism: unspecified Qualified Code(s): I63.9 - Cerebral infarction, unspecified (3) JARRED (acute kidney injury): PLAN: 1. COVID 19 onset around 06/06 vaccinated continue dexamethasone no remd as he is more than 10 days out plus JARRED 2. Metabolic encephalopathy probably 2/2 COVID, dehydration Acute CVA ruled out head CT unremarkable could be metabolic encephalopathy, but need to rule out CVA first DW [facility] neurology: she recommended repeat stat head CT, MRI brain, MRA H+N. Check echo MRI negative for CVA 3. JARRED suspected hold diuretics gentle IVF 4. Prostate cancer complicates care continue prednisone as he is on this chronically 5. Elevated D-dimer on empiric enoxaparin change to heparin gtt given JARRED consider VQ to rule out PE when more stable 6. DM2 hold home medications SSI 7. VTE prophylaxis: not indicated as he is anticoagulated. Charges/Coding Visit Charges Inpatient E&M: 28934 Subs Hosp L3
[2021-06-16] MEDS: HEPARIN/D5w 25,000 UNITS 25,000 UNITS/250 ML IV.SOLN. 10 UNITS IV (20:56)
[2021-06-16 23:15] LABS: Bedside Glucose 100 mg/dL (70-110)
[2021-06-17] VITALS (21 sets, daily range): BP systolic 125–165; BP diastolic 61–85; PULSE 66–108; RESP 19–28; TEMP 36.4–36.9; O2SAT 89–94
[2021-06-17 01:26] LABS: Partial Thromboplast Time 56.1 Seconds (24.1-36.2)
[2021-06-17] MEDS: Sodium Chloride 0.65% 1 SPRAY SPRAY.BTL 2 SPRAY NASAL (05:32)
[2021-06-17 06:50] LABS: Bedside Glucose 94 mg/dL (70-110)
[2021-06-17 08:05] LABS: Absolute Lymphocyte Count 0.36 X10^3/uL (0.83-4.51); Absolute Neutrophil Count 6.2 X10^3/uL (2.0-7.7); Basophil# 0.01 X10^3/uL; Basophil% 0.1 % (0-1); Hematocrit 31.9 % (40-54); Hemoglobin 10.3 g/dL (13.0-16.5); Lymphocyte # 0.36 X10^3/ul (0.83-4.51); Lymphocyte % 5.3 % (19-41); Mean Corp Hgb Conc 32.3 g/dL (32-36); Mean Corpuscular Hgb 27.9 pg (27.0-32.0); Mean Corpuscular Volume 86.4 fL (80-94); Mean Platelet Vol. 8.9 fl (6.2-12.0); Monocyte# 0.15 X10^3/uL; Monocyte% 2.2 % (0-10); NRBC Flagged by Analyzer 0 % (0-5); Neutrophil # 6.23 X10^3/uL (2.7-7.7); POSITIVE DIFFERENTIAL YES; POSITIVE MORPHOLOGY YES; Platelet Count 206 K/mm3 (150-450); RBC Distribution Width CV 14.3 % (11.6-14.6); RBC Distribution Width SD 45.1 fl (35.1-43.9); Red Blood Count 3.69 M/mm3 (4.6-6.2); White Blood Count 6.8 K/mm3 (4.4-11.0)
[2021-06-17 08:10] LABS: Differential Indicated SCAN CRITERIA MET
[2021-06-17 08:19] LABS: Partial Thromboplast Time 58.4 Seconds (24.1-36.2)
[2021-06-17 08:42] LABS: ALB/GLOB Ratio 0.4 RATIO (0.9-2.4); AST(SGOT) 90 U/L (15-37); Alanine Aminotransfer ALT/SGPT 64 U/L (16-61); Alkaline Phosphatase 62 U/L (45-117); Anion Gap 18 (5-15); BUN 56 mg/dL (7-18); BUN/Creat Ratio 11.3 RATIO (10-20); Calcium,Total 8.9 mg/dL (8.5-10.1); Chloride 110 mmol/L (98-107); Creatinine, Serum 4.97 mg/dL (0.70-1.30); EST Glomerular Filtration Rate 12 mL/min (>60); Est Glom Filt Rate - Afr Amer 15 mL/min (>60); Estimated Creatinine Clearance 12.64 ml/min; Globulin 5.1 g/dL (2.2-4.2); Glucose 92 mg/dL (74-106); Potassium 3.6 mmol/L (3.5-5.1); Protein, Total 7.1 g/dL (6.4-8.2); Sodium Level 139 mmol/L (136-145)
[2021-06-17] MEDS: predniSONE 5 MG Tablet PO (09:18)
[2021-06-17] MEDS: Metoprolol(XL)Succ 100 MG Tablet PO (09:18)
[2021-06-17] MEDS: dexAMETHasone 4 MG Tablet 6 MG PO (09:18)
--- NOTE | 2021-06-17 10:37 | CASEMGMT ---
TAWANDA called patient's daughter, Mabel. TAWANDA noted in patient's chart that family was interested in [facility]. Mabel said she lives in [place] and her mom lives in [place] so [facility] would be best. TAWANDA went over the 2 facilities in [place] and their Medicare ratings. TAWANDA told Mabel that [facility] is the only facility taking COVID patients. [facility] will look at patient's that are 10 days out from the positive test. Sunday would be 10 days. TAWANDA told Mabel that SW is not sure that patient will need to be in the hospital until Sunday. Mabel said she does not want her dad going to a facility that gets 2 stars. She nor anyone else in her family can go check out [facility] as they are all sick with COVID. She asked TAWANDA to tell her some of the other local facilities that get 4 or more stars. TAWANDA reviewed the list and let her know the facilities that get 4 or more stars. She will review those facilities. Plan: Likely SNF, but not sure which one as family does not want patient to go to [facility] due to their 2 star rating. Jannet Forman SENIOR MEDICAL DIRECTOR TINO
[2021-06-17 11:40] LABS: Bedside Glucose 120 mg/dL (70-110)
--- NOTE | 2021-06-17 13:12 | PCM.PN.HOSP ---
Subjective Subjective Denies shortness of breath despite oxygen requirements going up. Notes that he has chronic tremors, worse when he is sick. Objective Data Objective Data Vital Signs: Vital Signs Temp Pulse Resp BP Pulse Ox 36.4 C L 80 19 H 135/72 H 93 06/17/21 12:40 06/17/21 12:40 06/17/21 12:40 06/17/21 12:40 06/17/21 12:40 Oxygen Flow Rate (L/min) 12 Oxygen Delivery Method High Flow Weight: 77.8 kg Body Mass Index (BMI) 24.9 Intake & Output: Intake and Output for Last 24 Hours 06/15/21 06/16/21 06/17/21 23:59 23:59 23:59 Intake Total 2058.03 / 2158.03 305.30 / 305.30 48 / 48 Output Total 200 / 200 1000 / 1000 350 / 350 Balance 1858.03 / 1958.03 -694.70 / -694.70 -302 / -302 Lab / Micro Data Result Diagrams: 06/17/21 07:50 06/17/21 07:50 Labs: Laboratory Results - last 24 hr 06/16/21 16:31: POC Glucose 111 H 06/16/21 17:28: APTT 37.0 H 06/16/21 22:42: POC Glucose 100 06/17/21 01:04: APTT 56.1 H 06/17/21 06:38: POC Glucose 94 06/17/21 07:50: WBC 6.8, RBC 3.69 L, Hgb 10.3 L, Hct 31.9 L, MCV 86.4, MCH 27.9, MCHC 32.3 D, RDW Std Deviation 45.1 H, RDW Coeff of Tiffanie 14.3, Plt Count 206, MPV 8.9, Immature Gran % (Auto) 0.400, Neut % (Auto) 92.0 H, Lymph % (Auto) 5.3 L, [place] % (Auto) 2.2, Eos % (Auto) 0.0, Baso % (Auto) 0.1, Absolute Neuts (auto) 6.2, Absolute Lymphs (auto) 0.36 L, Nucleated RBC % 0 06/17/21 07:50: Sodium 139, Potassium 3.6, Chloride 110 H, Carbon Dioxide 11.0 L, Anion Gap 18 H, BUN 56 H, Creatinine 4.97 H, Estim Creat Clear Calc 12.64, Est GFR (MDRD) Af Amer 15 L, Est GFR (MDRD) Non-Af 12 L, BUN/Creatinine Ratio 11.3, Glucose 92, Calcium 8.9, Total Bilirubin 0.70, AST 90 H, ALT 64 H, Alkaline Phosphatase 62, Total Protein 7.1, Albumin 2.0 L, Globulin 5.1 H, Albumin/Globulin Ratio 0.4 L 06/17/21 07:50: APTT 58.4 H 06/17/21 11:20: POC Glucose 120 H Micro: Microbiology 06/14/21 17:08 Blood Culture (Wb) - Anticubital Right Blood Culture - Preliminary No growth in 48 hours. 06/14/21 15:30 Blood Culture (Wb) - Anticubital Left Blood Culture - Preliminary No growth in 48 hours. Physical Exam Const alert and no apparent distress HEENT HEENT Narrative: startled appearance. Eyes EOMs intact bilaterally Resp normal respiratory effort, no retractions, no use of accessory muscles and clear to auscultation bilaterally Cardio regular rate, regular rhythm, S1 normal heart sound and S2 normal heart sound GI normal to inspection, nondistended, normoactive bowel sounds, soft to palpation, non-tender and non-distended Extremity normal to inspection and full ROM Neuro oriented x3 Neuro Narrative: tremulous. Sensorium / Orientation: awake and alert Motor Exam: strength 5/5 throughout Psych affect normal Assessment & Plan Assessment/Plan (1) COVID-19: (2) CVA (cerebral vascular accident): QUALIFIERS: CVA mechanism: unspecified Qualified Code(s): I63.9 - Cerebral infarction, unspecified (3) JARRED (acute kidney injury): PLAN: 1. COVID 19 onset around 06/06 vaccinated continue dexamethasone no remd as he is more than 10 days out plus JARRED 2. Metabolic encephalopathy probably 2/2 COVID, dehydration Acute CVA ruled out head CT unremarkable could be metabolic encephalopathy, but need to rule out CVA first DW [facility] neurology: she recommended repeat stat head CT, MRI brain, MRA H+N. Check echo MRI negative for CVA 3. JARRED worsening hold diuretics consult nephrology check US 4. Prostate cancer complicates care continue prednisone when completed with dexamethasone follow up with Dr. Henriquez 5. Elevated D-dimer on empiric enoxaparin change to heparin gtt given JARRED consider VQ to rule out PE when more stable 6. DM2 hold home medications SSI 7. Acute hypoxic respiratory failure 2/2 COVID 19 worsening check pneumonia work up. 8. VTE prophylaxis: not indicated as he is anticoagulated. 9. Dysphagia NPO ST eval 10. Acute hypoxic respiratory failure worsening 2/2 COVID 19 recheck CXR check pneumonia work up. Charges/Coding Visit Charges Inpatient E&M: 14317 Subs Hosp L3
--- NOTE | 2021-06-17 13:24 | US_ITS ---
STUDY: RENAL ULTRASOUND - COMPLETE REASON FOR EXAM: Male, 75 years old. JARRED TECHNIQUE: Ultrasound evaluation of the kidneys was performed with real-time and static bradshaw-scale imaging. COMPARISON: None. FINDINGS: RIGHT KIDNEY: Normal location of the right kidney, which is normal in size. The right kidney measures 12.5 sign of by 6.5 cm x 6 cm. There is a normal cortex of the right kidney. The renal cortex measures 1.5 cm. There is no right renal mass or cyst. There are no right renal calculi. There is no right hydronephrosis. DISTAL RIGHT URETER: There is non-visualization of the distal right ureter. There is no demonstrated right ureterovesical junction calculus. There is a visualized right ureteral jet. LEFT KIDNEY: Normal location of the left kidney, which is normal in size. The left kidney measures 12.3 cm x 6.5 cm x 6.2 cm. There is a normal cortex of the left kidney. The renal cortex measures 1.5 cm. There is no left renal mass or cyst. There are no left renal calculi. There is no left hydronephrosis. DISTAL LEFT URETER: There is non-visualization of the distal left ureter. There is no demonstrated left ureterovesical junction calculus. There is a visualized left ureteral jet. BLADDER: The distended urinary bladder has a volume of 127 ml. There is a normal wall thickness of the distended urinary bladder. There is no demonstrated mass within the urinary bladder. There are no demonstrated bladder calculi. US/Kidney and Bladder IMPRESSION: Normal ultrasound of the kidneys and urinary bladder. Electronically Signed: Rafy Candelaria MD at 15:06 EST , Service support ,
--- NOTE | 2021-06-17 13:25 | RAD_ITS ---
STUDY: X-RAY CHEST REASON FOR EXAM: Male, 75 years old. Dyspnea. COVID. Cough. TECHNIQUE: Single AP portable view of the chest. COMPARISON: 06/14/2021. FINDINGS: Increasing patchy pulmonary infiltrates. There is greater involvement of the right upper lobe on the current study. There is no demonstrated pleural abnormality. The is unchanged in size. There is no change in the mediastinum, thomas, pulmonary arteries or aorta. No osseous changes. There is no demonstrated abnormality of the visualized soft tissue structures of the upper abdomen. RAD/Chest 1 View (Portable) IMPRESSION: Worsening pulmonary infiltrates. Electronically Signed: Jaron Ibrahim DO at 18:03 EST Tel [phone], Service support ,
--- NOTE | 2021-06-17 14:31 | SP.MBSS_ITS ---
Modified Barium Swallow - Patient Information Study Date: 06/17/21 Study Time: 13:30 Direct Billable Minutes: 90 Total Minutes procedure & reportin Diagnosis: COVID-19, Dysphagia Referring Physician: Raheem Molina Reason for Referral: Objectively assess swallow function and aspiration risk. Medical History: CHRISTIN LY, is a 75 M who presented to [facility] ED 06/14/2021 with weakness and increasing dyspnea on exertion and shortness of breath. According to him and his , he started getting sick around 06/05/2021 and had a Covid test at home on 06/10/2021, which came back positive. As he was coughing, he came to the hospital on 06/11/2021 and has a positive Covid test at that time, as well. He was discharged home as at that time he did not require any oxygen to have outpatient follow-up and a referral for monoclonal antibody infusion. Unfortunately he was not able to receive the antibody infusion as he became weaker and was unable to get out of bed in time to go to the bathroom and had accident in the bed. He is still not requiring any oxygen however his p.o. intake has declined significantly. His chest x-ray is being read as multifocal infiltrates. Given his weakness and his JARRED, will admit for conservative IV fluids and possible placement. Pt referred for speech consult after failing his RN dysphagia screen as pt had decreased alertness. After speech therapy evaluation, pt continued NPO with sips and chips permitted due to concern for aspiration. Referred for MBS study 06/17/2021 to further assess concerns for dys phagia and aspiration. [facility] Medical History Diabetes Hypercholesteremia Hypertension Prostate cancer Skin cancer Current Diet Ordered: NPO with sips and chips supervised. Dentition: WNL Mental Status: Impaired - Pt with confusion. Respiratory Status: Oxygenating on 4L/M nasal cannula - Pt is on 12L O2/min via high flow nasal cannula - Penetration-Aspiration Scale Penetration-Aspiration Scale: OBJECTIVE ASSESSMENT OF SWALLOW FUNCTION (QUANTITATIVE ? PER TRIAL): PENETRATION / ASPIRATION SCALE (STONE): 1 = does not enter airway 2 = enters airway/above vocal folds/ejected 3 = enters airway/above vocal folds/not ejected 4 = enters airway/contacts vocal folds/ejected 5 = enters airway/contacts vocal folds/not ejected 6 = enters airway/below vocal folds/ejected 7 = enters airway/below vocal folds/not ejected despite effort 8 = enters airway/below vocal folds/no effort VIDEOFLOROSCOPIC SCALE SCORE (STONE): Grade I = aspiration of material that has penetrated into the laryngeal vestibule, intact cough reflex Grade II = aspiration < 10 % of the bolus, intact cough reflex Grade III = aspiration of < 10 % of the bolus, reduced cough reflex or aspiration of > 10 % of the bolus, intact cough reflex Grade IV = aspiration of > 10 % of the bolus, reduced cough reflex - Penetration-Aspiration Scale Score Thin Liquid via 1/2 teaspoon Result: 1= does not enter airway Comment: Patient DID NOT CLEAR BOLUS from the oral cavity or valleculae with initiation of swallow. Thin Liquid via teaspoon Result: 5= enters airways/contacts vocal folds/not ejected - Weak cough reflex initiated. Thin Liquid via small single sip from cup Result: 3= enters airways/above vocal folds/not ejected [place] Thick Liquid via teaspoon Result: 3= enters airways/above vocal folds/not ejected Honey Thick Liquid via teaspoon Result: 2= enter airway/above vocal folds/ejected Honey Thick Liquid via teaspoon Trial 2 Result: 1= does not enter airway Pudding Double swallow Result: 1= does not enter airway - Double swallow required prolonged effort. Honey Thick Liquid via teaspoon Trial 3 Result: 1= does not enter airway Cookie Result: 2= enter airway/above vocal folds/ejected Honey Thick Liquid via teaspoon Trial 4 Result: 2= enter airway/above vocal folds/ejected - Oral Phase Labial Seal: Escape beyond interlabial space; no extension beyond igor border Tongue Control During Bolus Hold: Posterior escape of greater than half of bolus Bolus Preparation/Mastication: Slow prolonged chewing/mashing with complete r ecollection Bolus Transport/Lingual Motion: Repetitive/disorganized tongue motion Oral Residue: Minimal to no clearance - Initial sip of thin liquids via 1/2 tsp. - Pharyngeal Phase Initiation of Pharyngeal Swallow: Bolus head in valleculae Soft Palate Elevation: Trace column of contrast/air between soft palate and pharyngeal wall Laryngeal Elevation: Partial superior movement thyroid cart/partial apprx aryt- epig petiole Anterior Hyoid Excursion: Partial anterior movement Epiglottic Movement: Partial inversion - Inconsistent inversion of epiglottis. Laryngeal Vestibule Closure at Height of Swallow: Incomplete; narrow column of air/contrast in laryngeal vestibule Pharyngeal Stripping Wave: Present - diminished Pharyngoesophageal Segment Opening: Parital distension and partial duration; parital obstruction of flow Tongue Base Retraction: Narrow column of contrast between tongue base & post. pharyngeal wall Pharyngeal Residue: Collection of residue within or on pharyngeal structures - Esophageal Phase Esophageal Clearance: Esophageal retention w/ retrograde flow below pharyngoesophageal seg. - Treatment Strategies Effects of treatment strategies attemped:: Double swallow = Not effective. Decreased bolus size = Effective. Liquid wash = Somewhat Effective in clearing pharyngeal residues. - Diagnosis/Impression Diagnosis: Moderate-severe oropharyngeal phase dysphagia (R13.12) Impression: The oral phase of the swallow is primarily marked by prolonged mastication and decreased bolus control. The patient presented with poor oral clearance of 1/2 tsp sip of first thin liquid trials. He presented with mild-moderate oral residues, which improved with liquid wash. The pharyngeal phase is primarily marked by decreased airway protection due to decreased tongue base retraction, laryngeal elevation, and inconsistent anterior hyoid excursion and epiglottic inversion. He also had decreased UES opening/distention and pharyngeal contraction resulting in pharyngeal residues. The patient would benefit from alternating liquids and solids to improve clearance of both oral and pharyngeal residues. He presented with penetration of various liquid consistencies via tsp into the laryngeal vestibules. He did not fully eject penetration of thin and nectar liquids, but had full ejection of 4 trials of honey thick liquids via tsp. He additionally had penetration of cookie contrast with full ejection from the laryngeal vestibule. - Recommendations Diet: Puree Textures, Honey-thick Liquids Comment: If wet vocal quality during meals, encourage use of cough and reswallow. Compensatory Strategies: Small Bites, Small Sips, Liquid by Teaspoon Only, Slow Rate, Alternate bites/solids and sips/liquids, Sitting upright, Remain sitting upright for 30 minutes after PO intake Supervision: 1:1 Close Supervision Recommend Repeat Modified Barium Swallow: Yes - Will recommend repeat MBS study in 2-4 weeks after implementation of oropharyngeal strengthening. Need for Skilled Speech Therapy Services: Yes Comment: Will recommend the patient for continued dysphagia therapy to address deficits in oropharyngeal swallow function. Would consider the patient for oropharyngeal strengthening to improve lingual coordination, laryngeal elevation, hyoid excursion, and duration of UES opening. The patient would benefit from thorough education regarding diet recommendations and recommended compensatory strategies. Would consider patient for a modified Sanchez Free Water Protocol (sips by cup, one at a time, with direct supervision after oral care) to improve hydration and promote increased swallows throughout his day. Would not recommend diet upgrade past minced and moist textures / honey thick liquids at bedside prior to repeat MBS study. Education Completed: 1. Described result of evaluation., 7. Pt requires further education on strategies & risks. - Status Active ST Patient: Active - Contact Information [facility] Speech Therapy:: Madeline Lizama M.A. [facility] Speech-Language Pathologist [facility] [address] [place] [address] [email or web address] [phone] 06/17/21 14:55
--- NOTE | 2021-06-17 15:32 | PCM.CONS.R ---
Assessment & Plan Assessment/Plan (1) JARRED (acute kidney injury): PLAN: Reviewed his lab data from [facility]. He has known history of CKD stage IIIa with baseline creatinine around 1.5. In February of this year he had mild JARRED with creatinine at 2.2 but with holding the Lasix, creatinine improved back to baseline. Previous urine analysis with 1+ protein Renal ultrasound from March as outpatient did not show any hydronephrosis Renal ultrasound from today is pending read Worsening renal function. Urine looks somewhat darkish colored. Send urine lites, urine analysis. Tenuous breathing situation. Not sure how much of this is from acidosis. Will give mild IV fluids with bicarbonate to see if this will improve the respiratory drive Discussed with hospitalist We will have to clarify with family about dialysis option Acidosis. With slightly elevated gap. Due to JARRED. Lactate. HPI Consult Data Date of Consult: 06/17/21 HPI Narrative HPI Narrative: CHRISTIN LY, is a 75 M who presents to the hospital with complaints of progressively worsening shortness of breath. He was diagnosed with Covid pneumonia. Currently on treatment. Nephrology consulted for acute renal failure. Currently somewhat somnolent. Opens eyes to verbal commands but does not answer a lot of questions. Has visible tachypnea. Has an external urine catheter with dark brown-colored urine. When I asked if he has any kind of pain he says no. He has known history of prostate cancer and sees Dr. Henriquez [facility] Medical History (Updated 06/15/21 @ 09:50 by Rimma Avila) Cancer Diabetes GERD (gastroesophageal reflux disease) Hearing loss, left Hearing loss, right Hypercholesteremia Hypertension Kidney disease Myocardial infarct Non-smoker Osteoporosis Prostate cancer Skin cancer Vision loss of left eye Wears hearing aid in both ears Home Medications abiraterone 1,000 mg PO DAILY 06/14/21 [History Last Taken 3 Days Ago ~06/11/21] dulaglutide [Trulicity] 1.5 mg SUBCUT SA 06/14/21 [History Last Taken 06/04/21] furosemide 20 mg PO DAILY 06/14/21 [History Last Taken 3 Days Ago ~06/11/21] gemfibrozil 600 mg PO BID 06/14/21 [History Last Taken 3 Days Ago ~06/11/21] lisinopril 20 mg PO DAILY 06/14/21 [History Last Taken 3 Days Ago ~06/11/21] metformin 850 mg PO BID 06/14/21 [History Last Taken 3 Days Ago ~06/11/21] metoprolol succinate 100 mg PO DAILY 06/14/21 [History Last Taken 3 Days Ago ~06/11/21] pantoprazole 40 mg PO DAILY 06/14/21 [History Last Taken 3 Days Ago ~06/11/21] prednisone 5 mg PO BID 06/14/21 [History Last Taken 3 Days Ago ~06/11/21] rosuvastatin 20 mg PO DAILY 06/14/21 [History Last Taken 3 Days Ago ~06/11/21] Allergy/AdvReac Type Severity Reaction Status Date / Time No Known Allergies Allergy Verified 06/11/21 11:17 Family History (Updated 06/14/21 @ 19:[address] Randy Kathleen MD) Other Diabetes Heart disease Surgical History (Updated 06/15/21 @ 09:50 by Rimma Avila) H/O cardiac catheterization History of coronary artery stent placement Hx of rotator cuff surgery Social History Smoking Status: Never smoker ROS Review of Systems ROS Unobtainable: due to encephalopathy Physical Exam Narrative sleepy no obvious distress no pallor no icterus no JVD s1s2 no murmurs lungs rales abdomen soft no organomegaly no edema no cyanosis Lab / Micro Data Result Diagrams: 06/17/21 07:50 06/17/21 07:50 Labs: Laboratory Results - last 24 hr 06/16/21 16:31: POC Glucose 111 H 06/16/21 17:28: APTT 37.0 H 06/16/21 22:42: POC Glucose 100 06/17/21 01:04: APTT 56.1 H 06/17/21 06:38: POC Glucose 94 06/17/21 07:50: WBC 6.8, RBC 3.69 L, Hgb 10.3 L, Hct 31.9 L, MCV 86.4, MCH 27.9, MCHC 32.3 D, RDW Std Deviation 45.1 H, RDW Coeff of Tiffanie 14.3, Plt Count 206, MPV 8.9, Immature Gran % (Auto) 0.400, Neut % (Auto) 92.0 H, Lymph % (Auto) 5.3 L, [place] % (Auto) 2.2, Eos % (Auto) 0.0, Baso % (Auto) 0.1, Absolute Neuts (auto) 6.2, Absolute Lymphs (auto) 0.36 L, Nucleated RBC % 0 06/17/21 07:50: Sodium 139, Potassium 3.6, Chloride 110 H, Carbon Dioxide 11.0 L, Anion Gap 18 H, BUN 56 H, Creatinine 4.97 H, Estim Creat Clear Calc 12.64, Est GFR (MDRD) Af Amer 15 L, Est GFR (MDRD) Non-Af 12 L, BUN/Creatinine Ratio 11.3, Glucose 92, Calcium 8.9, Total Bilirubin 0.70, AST 90 H, ALT 64 H, Alkaline Phosphatase 62, Total Protein 7.1, Albumin 2.0 L, Globulin 5.1 H, Albumin/Globulin Ratio 0.4 L 06/17/21 07:50: APTT 58.4 H 06/17/21 11:20: POC Glucose 120 H Micro: Microbiology 06/14/21 17:08 Blood Culture (Wb) - Anticubital Right Blood Culture - Preliminary No growth in 48 hours. 06/14/21 15:30 Blood Culture (Wb) - Anticubital Left Blood Culture - Preliminary No growth in 48 hours. Radiology Impression Renal Ultrasound 06/17/21 13:24 IMPRESSION: Normal ultrasound of the kidneys and urinary bladder. Electronically Signed: Rafy Candelaria MD at 15:06 EST , Service support ,
[2021-06-17 16:10] LABS: Partial Thromboplast Time 61.6 Seconds (24.1-36.2)
[2021-06-17 16:35] LABS: Bedside Glucose 145 mg/dL (70-110)
[2021-06-17 18:16] LABS: Mucous, Urine 0 SEEN /hpf (<or=2+); Squamous Epithelial Cells - UA 0 SEEN /hpf (0-5); White Blood Cells 0 SEEN /hpf (0-5)
[2021-06-17 18:18] LABS: Color, Urine Yellow (Yellow); Glucose, Dipstick Normal (Normal); Ketone-Dipstick 5 mg/dl (Negative); Leukocyte Esterase-Dipstick Negative /ul (Negative); Nitrite-Dipstick Negative (Negative); Occult Blood-Urine 150 /ul (Negative); Protein-Dipstick 100 mg/dl (Negative); Specific Gravity, Urine 1.015 (1.002-1.030); Urine Bilirubin Dipstick Negative (Negative); Urine Clarity Clear (Clear); Urine Urobilinogen Normal (Normal)
[2021-06-17 18:30] LABS: Urine Sodium 19 mmol/L (Not Establ.)
[2021-06-17 18:39] LABS: Bacteria RARE /hpf (None Seen); Red Blood Cells-Urine 0-5 SEEN /hpf (0-5)
[2021-06-17] MEDS: Insulin Lispro 100 UNIT/ML INSULN.PEN SC (21:59)
[2021-06-17 23:25] LABS: Bedside Glucose 225 mg/dL (70-110)
[2021-06-18] VITALS (14 sets, daily range): BP systolic 115–150; BP diastolic 62–79; PULSE 60–75; RESP 18–20; TEMP 36.4–37; O2SAT 92–93
[2021-06-18] MEDS: Insulin Lispro 100 UNIT/ML INSULN.PEN SC ×4 (06:55→22:08)
[2021-06-18 07:06] LABS: Bedside Glucose 225 mg/dL (70-110)
[2021-06-18 07:53] LABS: Partial Thromboplast Time 48.5 Seconds (24.1-36.2)
[2021-06-18 08:13] LABS: Absolute Lymphocyte Count 0.23 X10^3/uL (0.83-4.51); Absolute Neutrophil Count 6.1 X10^3/uL (2.0-7.7); Basophil# 0.01 X10^3/uL; Basophil% 0.2 % (0-1); Lymphocyte # 0.23 X10^3/ul (0.83-4.51); Lymphocyte % 3.5 % (19-41); Mean Corp Hgb Conc 33.3 g/dL (32-36); Mean Corpuscular Hgb 28.7 pg (27.0-32.0); Mean Platelet Vol. 9.8 fl (6.2-12.0); Monocyte# 0.24 X10^3/uL; Monocyte% 3.6 % (0-10); NRBC Flagged by Analyzer 0 % (0-5); Neutrophil # 6.12 X10^3/uL (2.7-7.7); Neutrophil % 92.1 % (47-70); POSITIVE DIFFERENTIAL YES; POSITIVE MORPHOLOGY YES; Platelet Count 213 K/mm3 (150-450); RBC Distribution Width CV 14.6 % (11.6-14.6); RBC Distribution Width SD 45.3 fl (35.1-43.9); Red Blood Count 3.14 M/mm3 (4.6-6.2); White Blood Count 6.6 K/mm3 (4.4-11.0)
[2021-06-18 08:16] LABS: Differential Indicated SCAN CRITERIA MET
[2021-06-18 08:25] LABS: Anion Gap 16 (5-15); BUN 76 mg/dL (7-18); BUN/Creat Ratio 16.1 RATIO (10-20); Calcium,Total 8.4 mg/dL (8.5-10.1); Chloride 107 mmol/L (98-107); Creatinine, Serum 4.71 mg/dL (0.70-1.30); EST Glomerular Filtration Rate 13 mL/min (>60); Est Glom Filt Rate - Afr Amer 16 mL/min (>60); Estimated Creatinine Clearance 13.34 ml/min; Glucose 235 mg/dL (74-106); Potassium 3.5 mmol/L (3.5-5.1); Sodium Level 140 mmol/L (136-145)
[2021-06-18 09:30] LABS: Differential Comment SCANNED
[2021-06-18] MEDS: Pantoprazole Sodium 40 MG Tablet PO (10:16)
[2021-06-18] MEDS: Heparin Injection (Vial) 5,000 UNIT/ML VIAL IV ×2 (10:16→18:13)
[2021-06-18] MEDS: dexAMETHasone 4 MG Tablet 6 MG PO (10:16)
[2021-06-18] MEDS: Atorvastatin Calcium 40 MG Tablet PO (10:16)
[2021-06-18] MEDS: Metoprolol(XL)Succ 100 MG Tablet PO (10:16)
[2021-06-18 11:36] LABS: Bedside Glucose 166 mg/dL (70-110)
--- NOTE | 2021-06-18 15:29 | PN.HOSP_ITS ---
Subjective Subjective Stable on 12 liters. denies any complaints. Objective Data Objective Data Vital Signs: Vital Signs Temp Pulse Resp BP Pulse Ox 37.0 C 69 18 115/62 93 06/18/21 15:24 06/18/21 15:24 06/18/21 15:24 06/18/21 15:24 06/18/21 15:24 Oxygen Flow Rate (L/min) 12 Oxygen Delivery Method Nasal Cannula Weight: 78.2 kg Body Mass Index (BMI) 24.9 Intake & Output: Intake and Output for Last 24 Hours 06/16/21 06/17/21 06/18/21 23:59 23:59 23:59 Intake Total 305.30 / 305.30 310 / 310 241.17 / 241.17 Output Total 1000 / 1000 950 / 950 550 / 550 Balance -694.70 / -694.70 -640 / -640 -308.83 / -308.83 Lab / Micro Data Result Diagrams: 06/18/21 06:22 06/18/21 06:22 Labs: Laboratory Results - last 24 hr 06/17/21 15:10: APTT 61.6 H 06/17/21 16:20: POC Glucose 145 H 06/17/21 17:55: Urine Color Yellow, Urine Clarity Clear, Urine pH 5.0, Ur Specific [place] 1.015, Urine Protein 100 H, Urine Glucose (UA) Normal, Urine Ketones 5 H, Urine Occult Blood 150 H, Urine Nitrite Negative, Urine Bilirubin Negative, Urine Urobilinogen Normal, Ur Leukocyte Esterase Negative, Urine RBC 0-5 SEEN, Urine WBC 0 SEEN, Ur Squamous Epith Cells 0 SEEN, Urine Bacteria RARE, Urine Mucus 0 SEEN 06/17/21 17:55: Ur Random Sodium 19, Urine Creatinine 115.00 06/17/21 21:57: POC Glucose 225 H 06/18/21 06:22: APTT 48.5 H 06/18/21 06:22: WBC 6.6, RBC 3.14 L, Hgb 9.0 L, Hct 27.0 L, MCV 86.0, MCH 28.7, MCHC 33.3, RDW Std Deviation 45.3 H, RDW Coeff of Tiffanie 14.6, Plt Count 213, MPV 9.8, Immature Gran % (Auto) 0.600, Neut % (Auto) 92.1 H, Lymph % (Auto) 3.5 L, [place] % (Auto) 3.6, Eos % (Auto) 0.0, Baso % (Auto) 0.2, Absolute Neuts (auto) 6.1, Absolute Lymphs (auto) 0.23 L, Nucleated RBC % 0, Differential Comment SCANNED 06/18/21 06:22: Sodium 140, Potassium 3.5, Chloride 107, Carbon Dioxide 17.0 L, Anion Gap 16 H, BUN 76 H, Creatinine 4.71 H, Estim Creat Clear Calc 13.34, Est GFR (MDRD) Af Amer 16 L, Est GFR (MDRD) Non-Af 13 L, BUN/Creatinine Ratio 16.1, Glucose 235 H, Calcium 8.4 L 06/18/21 06:52: POC Glucose 225 H 06/18/21 11:27: POC Glucose 166 H Micro: Microbiology 06/17/21 18:00 Urine, Clean Catch Streptococcus pneumoniae Antigen (M - Final 06/17/21 17:55 Urine Catheter - Catheter Legionella Antigen - Final 06/14/21 17:08 Blood Culture (Wb) - Anticubital Right Blood Culture - Preliminary No growth in 48 hours. 06/14/21 15:30 Blood Culture (Wb) - Anticubital Left Blood Culture - Preliminary No growth in 48 hours. Radiography Diagnostic Testing: Radiology Impression Chest X-Ray 06/17/21 13:25 IMPRESSION: Worsening pulmonary infiltrates. Electronically Signed: Jaron Ibrahim DO at 18:03 EST Tel [phone], Service support , Physical Exam Const alert and no apparent distress HEENT Head and Scalp: normocephalic Resp normal respiratory effort and no retractions Resp Narrative: coarse breath sounds bilaterally. Cardio regular rate, regular rhythm, S1 normal heart sound and S2 normal heart sound GI normal to inspection, nondistended, normoactive bowel sounds, soft to palpation, non-tender and non-distended Assessment & Plan Assessment/Plan (1) COVID-19: (2) CVA (cerebral vascular accident): QUALIFIERS: CVA mechanism: unspecified Qualified Code(s): I63.9 - Cerebral infarction, unspecified (3) JARRED (acute kidney injury): (4) Acute respiratory failure with hypoxia: PLAN: 1. COVID 19 onset around 06/06 vaccinated continue dexamethasone no remdesivir as he is more than 10 days out plus JARRED 2. Metabolic encephalopathy resolved probably 2/2 COVID, dehydration Acute CVA ruled out head CT unremarkable MRI negative for CVA I am concerned pt may have some other non-CVA neurologic disorders (i.e., Parkinson's). Recommend neurology follow up for evaluation. 3. JARRED improved, but still grossly abnormal hold diuretics nephrology following. HCO3 gtt stopped Kidney US unremarkable. 4. acute hypoxic respiratory failure 2/2 COVID 19 cannot rule out VTE at this time CXR from the appears worse. Worsening COVID v CHF. wean oxygen as tolerated. Pneumonia work up negative 5. Acute HFrEF EF 45% no diuretics nor ACEi/ARBs given JARRED 6. Prostate cancer complicates care continue prednisone when completed with dexamethasone follow up with Dr. Henriquez 7. Elevated D-dimer on empiric enoxaparin change to heparin gtt given JARRED consider VQ to rule out PE when more stable 8. DM2 hold home medications SSI 9. VTE prophylaxis: not indicated as he is anticoagulated. 10. Dysphagia MBS yesterday. ST recommendations: Small Bites, Small Sips, Liquid by Teaspoon Only, Slow Rate, Alternate bites/solids and sips/liquids, Sitting upright, Remain sitting upright for 30 minutes after PO intake. Plus repeat MBS in 2-4 weeks. Charges/Coding Visit Charges Inpatient E&M: 51862 Subs Hosp L3
[2021-06-18 17:15] LABS: Bedside Glucose 207 mg/dL (70-110)
[2021-06-18 18:06] LABS: Partial Thromboplast Time 44.3 Seconds (24.1-36.2)
[2021-06-18 22:25] LABS: Bedside Glucose 200 mg/dL (70-110)
[2021-06-19] VITALS (12 sets, daily range): BP systolic 118–134; BP diastolic 58–72; PULSE 52–65; RESP 18; TEMP 36.4–36.9; O2SAT 93–97
[2021-06-19 01:00] LABS: Partial Thromboplast Time 46.4 Seconds (24.1-36.2)
[2021-06-19] MEDS: Heparin Injection (Vial) 5,000 UNIT/ML VIAL IV ×2 (01:25→09:55)
[2021-06-19] MEDS: Insulin Lispro 100 UNIT/ML INSULN.PEN SC ×3 (06:39→16:24)
[2021-06-19 06:45] LABS: Bedside Glucose 194 mg/dL (70-110)
[2021-06-19 07:47] LABS: Hematocrit 25.6 % (40-54); Hemoglobin 8.9 g/dL (13.0-16.5); Mean Corp Hgb Conc 34.8 g/dL (32-36); Mean Corpuscular Hgb 28.5 pg (27.0-32.0); Mean Corpuscular Volume 82.1 fL (80-94); Mean Platelet Vol. 9.6 fl (6.2-12.0); Platelet Count 224 K/mm3 (150-450); RBC Distribution Width CV 14.6 % (11.6-14.6); RBC Distribution Width SD 43.5 fl (35.1-43.9); Red Blood Count 3.12 M/mm3 (4.6-6.2); White Blood Count 5.5 K/mm3 (4.4-11.0)
[2021-06-19 08:02] LABS: Partial Thromboplast Time 48.1 Seconds (24.1-36.2)
[2021-06-19 08:39] LABS: ALB/GLOB Ratio 0.2 RATIO (0.9-2.4); AST(SGOT) 97 U/L (15-37); Alanine Aminotransfer ALT/SGPT 82 U/L (16-61); Albumin, Serum 1.2 g/dL (3.2-5.0); Alkaline Phosphatase 51 U/L (45-117); Anion Gap 13 (5-15); BUN 85 mg/dL (7-18); BUN/Creat Ratio 20.8 RATIO (10-20); Calcium,Total 8.3 mg/dL (8.5-10.1); Chloride 108 mmol/L (98-107); Creatinine, Serum 4.08 mg/dL (0.70-1.30); EST Glomerular Filtration Rate 15 mL/min (>60); Est Glom Filt Rate - Afr Amer 18 mL/min (>60); Globulin 5.3 g/dL (2.2-4.2); Glucose 195 mg/dL (74-106); Potassium 3.4 mmol/L (3.5-5.1); Protein, Total 6.5 g/dL (6.4-8.2); Sodium Level 138 mmol/L (136-145)
[2021-06-19] MEDS: Atorvastatin Calcium 40 MG Tablet PO (09:56)
[2021-06-19] MEDS: dexAMETHasone 4 MG Tablet 6 MG PO (09:56)
[2021-06-19] MEDS: Pantoprazole Sodium 40 MG Tablet PO (09:57)
[2021-06-19] MEDS: Metoprolol(XL)Succ 100 MG Tablet PO (10:00)
[2021-06-19 10:05] LABS: Bedside Glucose 191 mg/dL (70-110)
[2021-06-19 11:20] LABS: Bedside Glucose 212 mg/dL (70-110)
[2021-06-19 16:30] LABS: Bedside Glucose 191 mg/dL (70-110)
--- NOTE | 2021-06-19 16:59 | PN.HOSP_ITS ---
Subjective Subjective oxygenation improved today. Denies complaints. Objective Data Objective Data Vital Signs: Vital Signs Temp Pulse Resp BP Pulse Ox 36.6 C 55 L 18 124/64 H 95 06/19/21 14:39 06/19/21 15:00 06/19/21 14:39 06/19/21 14:39 06/19/21 16:09 Oxygen Flow Rate (L/min) 3 Oxygen Delivery Method Nasal Cannula Weight: 78.1 kg Body Mass Index (BMI) 24.9 Intake & Output: Intake and Output for Last 24 Hours 06/17/21 06/18/21 06/19/21 23:59 23:59 23:59 Intake Total 310 / 310 1815.75 / 1815.75 507.83 / 507.83 Output Total 950 / 950 1000 / 1000 700 / 700 Balance -640 / -640 815.75 / 815.75 -192.17 / -192.17 Lab / Micro Data Result Diagrams: 06/19/21 07:26 06/19/21 07:26 Labs: Laboratory Results - last 24 hr 06/18/21 17:07: POC Glucose 207 H 06/18/21 17:26: APTT 44.3 H 06/18/21 22:04: POC Glucose 200 H 06/19/21 00:30: APTT 46.4 H 06/19/21 06:33: POC Glucose 194 H 06/19/21 07:26: WBC 5.5, RBC 3.12 L, Hgb 8.9 L, Hct 25.6 L, MCV 82.1, MCH 28.5, MCHC 34.8, RDW Std Deviation 43.5, RDW Coeff of Tiffanie 14.6, Plt Count 224, MPV 9.6 06/19/21 07:26: Sodium 138, Potassium 3.4 L, Chloride 108 H, Carbon Dioxide 17.0 L, Anion Gap 13, BUN 85 H, Creatinine 4.08 H, Estim Creat Clear Calc 15.40, Est GFR (MDRD) Af Amer 18 L, Est GFR (MDRD) Non-Af 15 L, BUN/Creatinine Ratio 20.8 H , Glucose 195 H, Calcium 8.3 L, Total Bilirubin 0.80, AST 97 H, ALT 82 H, Alkaline Phosphatase 51, Total Protein 6.5, Albumin 1.2 L, Globulin 5.3 H, Albumin/Globulin Ratio 0.2 L 06/19/21 07:26: APTT 48.1 H 06/19/21 09:52: POC Glucose 191 H 06/19/21 11:11: POC Glucose 212 H 06/19/21 16:23: POC Glucose 191 H Micro: Microbiology 06/17/21 18:00 Urine, Clean Catch Streptococcus pneumoniae Antigen (M - Final 06/17/21 17:55 Urine Catheter - Catheter Legionella Antigen - Final 06/14/21 17:08 Blood Culture (Wb) - Anticubital Right Blood Culture - Preliminary No growth in 48 hours. 06/14/21 15:30 Blood Culture (Wb) - Anticubital Left Blood Culture - Preliminary No growth in 48 hours. Physical Exam Const Constitutional Narrative: up in bed. afebrile. Resp normal respiratory effort, no retractions, no use of accessory muscles and clear to auscultation bilaterally Cardio regular rate, regular rhythm, S1 normal heart sound and S2 normal heart sound GI normal to inspection, nondistended, normoactive bowel sounds, soft to palpation, non-tender and non-distended Extremity normal to inspection Assessment & Plan Assessment/Plan (1) COVID-19: (2) CVA (cerebral vascular accident): QUALIFIERS: CVA mechanism: unspecified Qualified Code(s): I63.9 - Cerebral infarction, unspecified (3) JARRED (acute kidney injury): (4) Acute respiratory failure with hypoxia: PLAN: 1. COVID 19 onset around 06/06 vaccinated continue dexamethasone no remdesivir as he is more than 10 days out plus JARRED 2. Metabolic encephalopathy resolved probably 2/2 COVID, dehydration Acute CVA ruled out head CT unremarkable MRI negative for CVA I am concerned pt may have some other non-CVA neurologic disorders (i.e., Parkinson's). Recommend neurology follow up for evaluation. 3. JARRED improving, but still grossly abnormal hold diuretics nephrology following. HCO3 gtt stopped Kidney US unremarkable. 4. acute hypoxic respiratory failure 2/2 COVID 19 cannot rule out VTE at this time CXR from the 10th appears worse. Worsening COVID v CHF. wean oxygen as tolerated. Pneumonia work up negative 5. Acute HFrEF EF 45% no diuretics nor ACEi/ARBs given JARRED 6. Prostate cancer complicates care continue prednisone when completed with dexamethasone follow up with Dr. Henriquez 7. Elevated D-dimer on therapuetic enoxaparin change to heparin gtt given JARRED consider VQ to rule out PE when more stable 8. DM2 hold home medications SSI 9. VTE prophylaxis: not indicated as he is anticoagulated. 10. Dysphagia MBS yesterday. ST recommendations: Small Bites, Small Sips, Liquid by Teaspoon Only, Slow Rate, Alternate bites/solids and sips/liquids, Sitting upright, Remain sitting upright for 30 minutes after PO intake. Plus repeat MBS in 2-4 weeks. 11. Debility moderate assist of 2 persons pt would require SNF upon discharge he is not medically ready for discharge yet. Charges/Coding Visit Charges Inpatient E&M: 24561 Subs Hosp L2
[2021-06-19 18:25] LABS: Partial Thromboplast Time 109.8 Seconds (24.1-36.2)
[2021-06-19 23:21] LABS: Bedside Glucose 224 mg/dL (70-110)
[2021-06-20] VITALS (12 sets, daily range): BP systolic 132–147; BP diastolic 66–77; PULSE 55–67; RESP 18; TEMP 36.4–37.1; O2SAT 91–93
[2021-06-20] MEDS: Insulin Lispro 100 UNIT/ML INSULN.PEN SC ×5 (01:03→21:57)
[2021-06-20 01:55] LABS: Partial Thromboplast Time 38.2 Seconds (24.1-36.2)
[2021-06-20] MEDS: Heparin Injection (Vial) 5,000 UNIT/ML VIAL IV ×3 (02:18→17:32)
[2021-06-20 08:01] LABS: Bedside Glucose 209 mg/dL (70-110)
[2021-06-20 08:35] LABS: Hemoglobin 9.4 g/dL (13.0-16.5); Mean Corp Hgb Conc 34.8 g/dL (32-36); Mean Corpuscular Hgb 28.8 pg (27.0-32.0); Mean Corpuscular Volume 82.8 fL (80-94); Mean Platelet Vol. 9.7 fl (6.2-12.0); Platelet Count 230 K/mm3 (150-450); RBC Distribution Width CV 14.4 % (11.6-14.6); RBC Distribution Width SD 43.7 fl (35.1-43.9); Red Blood Count 3.26 M/mm3 (4.6-6.2); White Blood Count 6.7 K/mm3 (4.4-11.0)
[2021-06-20 08:44] LABS: Partial Thromboplast Time 38.1 Seconds (24.1-36.2)
[2021-06-20 09:32] LABS: ALB/GLOB Ratio 0.3 RATIO (0.9-2.4); AST(SGOT) 46 U/L (15-37); Alanine Aminotransfer ALT/SGPT 70 U/L (16-61); Albumin, Serum 1.4 g/dL (3.2-5.0); Alkaline Phosphatase 58 U/L (45-117); Anion Gap 12 (5-15); BUN 89 mg/dL (7-18); BUN/Creat Ratio 26.1 RATIO (10-20); Calcium,Total 8.4 mg/dL (8.5-10.1); Chloride 111 mmol/L (98-107); Creatinine, Serum 3.41 mg/dL (0.70-1.30); EST Glomerular Filtration Rate 19 mL/min (>60); Est Glom Filt Rate - Afr Amer 23 mL/min (>60); Estimated Creatinine Clearance 18.43 ml/min; Globulin 5.2 g/dL (2.2-4.2); Glucose 199 mg/dL (74-106); Potassium 3.4 mmol/L (3.5-5.1); Protein, Total 6.6 g/dL (6.4-8.2); Sodium Level 142 mmol/L (136-145)
[2021-06-20] MEDS: Pantoprazole Sodium 40 MG Tablet PO (10:12)
[2021-06-20] MEDS: Metoprolol(XL)Succ 100 MG Tablet PO (10:12)
[2021-06-20] MEDS: dexAMETHasone 4 MG Tablet 6 MG PO (10:12)
[2021-06-20] MEDS: Atorvastatin Calcium 40 MG Tablet PO (10:13)
[2021-06-20 12:10] LABS: Bedside Glucose 251 mg/dL (70-110)
--- NOTE | 2021-06-20 12:41 | PN.RENAL_ITS ---
Objective Data Objective Data Vital Signs: Vital Signs Temp Pulse Resp BP Pulse Ox 98.8 F 67 18 134/68 H 92 06/20/21 09:40 06/20/21 10:12 06/20/21 09:40 06/20/21 10:12 06/20/21 11:52 Oxygen Flow Rate (L/min) 8 Oxygen Delivery Method Nasal Cannula Weight: 77.2 kg Body Mass Index (BMI) 24.9 Intake & Output: Intake and Output for Last 24 Hours 06/18/21 06/19/21 06/20/21 23:59 23:59 23:59 Intake Total 1815.75 / 1815.75 817.23 / 817.23 276.27 / 276.27 Output Total 1000 / 1000 1200 / 1200 300 / 300 Balance 815.75 / 815.75 -382.77 / -382.77 -23.73 / -23.73 Lab / Micro Data Result Diagrams: 06/20/21 08:24 06/20/21 08:24 Labs: Laboratory Results - last 24 hr 06/19/21 16:23: POC Glucose 191 H 06/19/21 17:40: APTT 109.8 H* 06/19/21 21:55: POC Glucose 224 H 06/20/21 01:15: APTT 38.2 H 06/20/21 07:13: POC Glucose 209 H 06/20/21 08:24: WBC 6.7, RBC 3.26 L, Hgb 9.4 L, Hct 27.0 L, MCV 82.8, MCH 28.8, MCHC 34.8, RDW Std Deviation 43.7, RDW Coeff of Tiffanie 14.4, Plt Count 230, MPV 9.7 06/20/21 08:24: Sodium 142, Potassium 3.4 L, Chloride 111 H, Carbon Dioxide 19.0 L, Anion Gap 12, BUN 89 H, Creatinine 3.41 H, Estim Creat Clear Calc 18.43, Est GFR (MDRD) Af Amer 23 L, Est GFR (MDRD) Non-Af 19 L, BUN/Creatinine Ratio 26.1 H , Glucose 199 H, Calcium 8.4 L, Total Bilirubin 0.90, AST 46 H, ALT 70 H, Alkaline Phosphatase 58, Total Protein 6.6, Albumin 1.4 L, Globulin 5.2 H, Albumin/Globulin Ratio 0.3 L 06/20/21 08:24: APTT 38.1 H 06/20/21 11:49: POC Glucose 251 H Micro: Microbiology 06/14/21 17:08 Blood Culture (Wb) - Anticubital Right Blood Culture - Final No growth in 5 days. 06/14/21 15:30 Blood Culture (Wb) - Anticubital Left Blood Culture - Final No growth in 5 days. 06/17/21 18:00 Urine, Clean Catch Streptococcus pneumoniae Antigen (M - Final 06/17/21 17:55 Urine Catheter - Catheter Legionella Antigen - Final Physical Exam Narrative sleepy no obvious distress no pallor no icterus no JVD s1s2 no murmurs lungs rales abdomen soft no organomegaly no edema no cyanosis Assessment & Plan Assessment/Plan (1) JARRED (acute kidney injury): PLAN: Reviewed his lab data from [facility]. He has known history of CKD stage IIIa with baseline creatinine around 1.5. In February of this year he had mild JARRED with creatinine at 2.2 but with holding the Lasix, creatinine improved back to baseline. Previous urine analysis with 1+ protein Renal ultrasound from March as outpatient did not show any hydronephrosis Renal ultrasound from today is pending read Worsening renal function. Urine looks somewhat darkish colored. Send urine lites, urine analysis. Tenuous breathing situation. Not sure how much of this is from acidosis. Will give mild IV fluids with bicarbonate to see if this will improve the respiratory drive Discussed with hospitalist We will have to clarify with family about dialysis option Acidosis. With slightly elevated gap. Due to JARRED. Lactate.
--- NOTE | 2021-06-20 14:55 | PCM.PN.HOSP ---
Subjective Subjective Patient is a 75-year-old gentleman admitted with generalized weakness loss of appetite and shortness of breath. Diagnosed with COVID-19 pneumonia Objective Data Objective Data Vital Signs: Vital Signs Temp Pulse Resp BP Pulse Ox 98.8 F 64 18 134/68 H 91 06/20/21 09:40 06/20/21 14:24 06/20/21 09:40 06/20/21 10:12 06/20/21 13:00 Oxygen Flow Rate (L/min) 8 Oxygen Delivery Method Nasal Cannula Weight: 77.2 kg Body Mass Index (BMI) 24.9 Intake & Output: Intake and Output for Last 24 Hours 06/18/21 06/19/21 06/20/21 23:59 23:59 23:59 Intake Total 1815.75 / 1815.75 817.23 / 817.23 276.27 / 276.27 Output Total 1000 / 1000 1200 / 1200 300 / 300 Balance 815.75 / 815.75 -382.77 / -382.77 -23.73 / -23.73 Lab / Micro Data Result Diagrams: 06/20/21 08:24 06/20/21 08:24 Labs: Laboratory Results - last 24 hr 06/19/21 16:23: POC Glucose 191 H 06/19/21 17:40: APTT 109.8 H* 06/19/21 21:55: POC Glucose 224 H 06/20/21 01:15: APTT 38.2 H 06/20/21 07:13: POC Glucose 209 H 06/20/21 08:24: WBC 6.7, RBC 3.26 L, Hgb 9.4 L, Hct 27.0 L, MCV 82.8, MCH 28.8, MCHC 34.8, RDW Std Deviation 43.7, RDW Coeff of Tiffanie 14.4, Plt Count 230, MPV 9.7 06/20/21 08:24: Sodium 142, Potassium 3.4 L, Chloride 111 H, Carbon Dioxide 19.0 L, Anion Gap 12, BUN 89 H, Creatinine 3.41 H, Estim Creat Clear Calc 18.43, Est GFR (MDRD) Af Amer 23 L, Est GFR (MDRD) Non-Af 19 L, BUN/Creatinine Ratio 26.1 H, Glucose 199 H, Calcium 8.4 L, Total Bilirubin 0.90, AST 46 H, ALT 70 H, Alkaline Phosphatase 58, Total Protein 6.6, Albumin 1.4 L, Globulin 5.2 H, Albumin/Globulin Ratio 0.3 L 06/20/21 08:24: APTT 38.1 H 06/20/21 11:49: POC Glucose 251 H Micro: Microbiology 06/14/21 17:08 Blood Culture (Wb) - Anticubital Right Blood Culture - Final No growth in 5 days. 06/14/21 15:30 Blood Culture (Wb) - Anticubital Left Blood Culture - Final No growth in 5 days. 06/17/21 18:00 Urine, Clean Catch Streptococcus pneumoniae Antigen (M - Final 06/17/21 17:55 Urine Catheter - Catheter Legionella Antigen - Final Physical Exam Narrative GENERAL: Frail looking HEENT: Atraumatic; EYES; Anicteric, Normal Conjunctiva NECK; supple, normal thyroid, RESPIRATORY: Diminished to auscultation CARDIOVASCULAR: Regular S1 S2, GI: soft, normoactive bowel sounds, : No Renal angle tenderness; EXTREMITIES: No edema, no clubbing, MUSCULOSKELETAL: no muscle waisting NEURO: Awake; no lateralizing signs. SKIN: No Rash PSYCH; Flat affect Assessment & Plan Assessment/Plan (1) COVID-19: (2) CVA (cerebral vascular accident): QUALIFIERS: CVA mechanism: unspecified Qualified Code(s): I63.9 - Cerebral infarction, unspecified (3) JARRED (acute kidney injury): (4) Acute respiratory failure with hypoxia: PLAN: Patient is a 75-year-old gentleman admitted with generalized weakness loss of appetite and shortness of breath. Diagnosed with COVID-19 pneumonia 1. Acute hypoxic respiratory failure ?Secondary to COVID-19 pneumonia. Patient was outside the window for remdesivir on admission was however placed on Decadron and supplemental oxygen 2. Acute metabolic encephalopathy secondary to COVID-19 pneumonia dehydration ?Underlying etiology managed as discussed 3. Hypokalemia -Corrected per protocol 4. Impaired kidney function ?Do suspect acute kidney injury. Patient creatinine peaked at 4.97 down to 3.41. Renal ultrasound obtained was basically unremarkable. In view of patient kidney function not improving as quickly as expected consult was placed to nephrology 5. Diabetes mellitus type II -patient's oral hypoglycemics held. Placed on long acting insulin, Accu-Cheks a.c. and at bedtime and covered with sliding scale insulin 6. Dyslipidemia -Patient is on statin therapy, continued at home dose 7. Essential hypertension I did continue with home medicine for nephrotoxic ones including lisinopril 8. GERD ?On PPI 7. Prostate CA ?Patient is followed by Dr. Larson as outpatient 8. Physical deconditioning - Requested for PT OT eval and delinquency prevention social worker to assist with discharge planning 9. Dysphagia ?Patient underwent modified barium swallow recommendation from speech therapy reviewed 10. DVT prophylaxis ?Patient is on heparin for elevated D-dimer Charges/Coding Visit Charges Inpatient E&M: 24534 Subs Hosp L3
[2021-06-20 16:56] LABS: Bedside Glucose 266 mg/dL (70-110)
[2021-06-20 16:59] LABS: Partial Thromboplast Time 35.5 Seconds (24.1-36.2)
[2021-06-20 22:40] LABS: Bedside Glucose 269 mg/dL (70-110)
[2021-06-21] VITALS (12 sets, daily range): BP systolic 133–148; BP diastolic 66–74; PULSE 51–67; RESP 18; TEMP 36.5–36.9; O2SAT 94–96
[2021-06-21 00:41] LABS: Partial Thromboplast Time 85.5 Seconds (24.1-36.2)
[2021-06-21] MEDS: Insulin Lispro 100 UNIT/ML INSULN.PEN SC ×4 (06:43→22:01)
[2021-06-21 06:50] LABS: Bedside Glucose 182 mg/dL (70-110)
[2021-06-21 08:52] LABS: Partial Thromboplast Time 47.4 Seconds (24.1-36.2)
[2021-06-21 09:13] LABS: ALB/GLOB Ratio 0.3 RATIO (0.9-2.4); AST(SGOT) 27 U/L (15-37); Alanine Aminotransfer ALT/SGPT 57 U/L (16-61); Albumin, Serum 1.7 g/dL (3.2-5.0); Alkaline Phosphatase 73 U/L (45-117); Anion Gap 9 (5-15); BUN 76 mg/dL (7-18); BUN/Creat Ratio 28.1 RATIO (10-20); Chloride 112 mmol/L (98-107); EST Glomerular Filtration Rate 25 mL/min (>60); Est Glom Filt Rate - Afr Amer 30 mL/min (>60); Estimated Creatinine Clearance 23.28 ml/min; Glucose 196 mg/dL (74-106); Potassium 3.5 mmol/L (3.5-5.1); Protein, Total 6.7 g/dL (6.4-8.2); Sodium Level 145 mmol/L (136-145)
--- NOTE | 2021-06-21 10:09 | CASEMGMT ---
SW called patient's daughter regarding d/c plan. She is actually a patient in the hospital now and asked that SW speak with patient or patient's . SW called patient's . Introduced self and role at [facility]. SW discussed d/c plan for patient. She agrees he will need SNF placement. SW went over the list of local SNF's with patient's . She wants some place close to her. TAWANDA told her the places that were closest to her and their star ratings. Her choices were [facility] and [facility]. TAWANDA told her SW will work on this and keep her updated. SW gave her SW's phone number per her request. Jannet JIMÉNEZ
--- NOTE | 2021-06-21 10:29 | CASEMGMT ---
TAWANDA called [facility] regarding referral. Their maximum O2 is 5L. TAWANDA explained patient is not ready for discharge yet and today is day 10 from his positive COVID test. They will look at referral. TAWANDA faxed referral. TAWANDA also called [facility] regarding referral and faxed information. Await responses. Plan: SNF Jannet Forman [employer]
[2021-06-21] MEDS: dexAMETHasone 4 MG Tablet 6 MG PO (10:32)
[2021-06-21] MEDS: Pantoprazole Sodium 40 MG Tablet PO (10:33)
[2021-06-21] MEDS: Atorvastatin Calcium 40 MG Tablet PO (10:33)
[2021-06-21] MEDS: Metoprolol(XL)Succ 100 MG Tablet PO (10:33)
[2021-06-21 10:45] LABS: Bedside Glucose 249 mg/dL (70-110)
[2021-06-21] MEDS: Heparin Injection (Vial) 5,000 UNIT/ML VIAL IV (11:13)
--- NOTE | 2021-06-21 11:22 | PCM.PN.HOSP ---
Subjective Subjective Patient seen still requiring high flow oxygen currently 10 L/min flow. No significant change in kidney function. Patient was seen in consultation by nephrology. Apparently has underlying history of CKDIIIa Objective Data Objective Data Vital Signs: Vital Signs Temp Pulse Resp BP Pulse Ox 98 F 63 18 133/67 H 94 06/21/21 10:28 06/21/21 10:33 06/21/21 10:28 06/21/21 10:28 06/21/21 10:28 Oxygen Flow Rate (L/min) 10 Oxygen Delivery Method High Flow Weight: 76.5 kg Body Mass Index (BMI) 24.9 Intake & Output: Intake and Output for Last 24 Hours 06/19/21 06/20/21 06/21/21 23:59 23:59 23:59 Intake Total 817.23 / 817.23 412.77 / 412.77 211.51 / 211.51 Output Total 1200 / 1200 1325 / 1325 Balance -382.77 / -382.77 -912.23 / -912.23 211.51 / 211.51 Lab / Micro Data Result Diagrams: 06/20/21 08:24 06/21/21 06:55 Labs: Laboratory Results - last 24 hr 06/20/21 11:49: POC Glucose 251 H 06/20/21 16:24: APTT 35.5 06/20/21 16:40: POC Glucose 266 H 06/20/21 21:47: POC Glucose 269 H 06/21/21 00:15: APTT 85.5 H 06/21/21 06:42: POC Glucose 182 H 06/21/21 06:55: Sodium 145, Potassium 3.5, Chloride 112 H, Carbon Dioxide 24.0, Anion Gap 9, BUN 76 H, Creatinine 2.70 H, Estim Creat Clear Calc 23.28, Est GFR (MDRD) Af Amer 30 L, Est GFR (MDRD) Non-Af 25 L, BUN/Creatinine Ratio 28.1 H, Glucose 196 H, Calcium 9.0, Total Bilirubin 0.90, AST 27, ALT 57, Alkaline Phosphatase 73, Total Protein 6.7, Albumin 1.7 L, Globulin 5.0 H, Albumin/Globulin Ratio 0.3 L 06/21/21 06:55: APTT 47.4 H 06/21/21 10:26: POC Glucose 249 H Micro: Microbiology 12/07/21 17:08 Blood Culture (Wb) - Anticubital Right Blood Culture - Final No growth in 5 days. 06/14/21 15:30 Blood Culture (Wb) - Anticubital Left Blood Culture - Final No growth in 5 days. 06/17/21 18:00 Urine, Clean Catch Streptococcus pneumoniae Antigen (M - Final 06/17/21 17:55 Urine Catheter - Catheter Legionella Antigen - Final Physical Exam Narrative GENERAL: Frail looking HEENT: Atraumatic; EYES; Anicteric, Normal Conjunctiva NECK; supple, normal thyroid, RESPIRATORY: Diminished to auscultation CARDIOVASCULAR: Regular S1 S2, GI: soft, normoactive bowel sounds, : No Renal angle tenderness; EXTREMITIES: No edema, no clubbing, MUSCULOSKELETAL: no muscle waisting NEURO: Awake; no lateralizing signs. SKIN: No Rash PSYCH; Flat affect Assessment & Plan Assessment/Plan (1) COVID-19: (2) CVA (cerebral vascular accident): QUALIFIERS: CVA mechanism: unspecified Qualified Code(s): I63.9 - Cerebral infarction, unspecified (3) JARRED (acute kidney injury): (4) Acute respiratory failure with hypoxia: PLAN: Patient is a 75-year-old gentleman admitted with generalized weakness loss of appetite and shortness of breath. Diagnosed with COVID-19 pneumonia 1. Acute hypoxic respiratory failure ?Secondary to COVID-19 pneumonia. Patient was outside the window for remdesivir on admission was however placed on Decadron and supplemental oxygen -06/21/2021; patient still requiring high flow oxygen currently 10 L/min flow 2. Acute metabolic encephalopathy secondary to COVID-19 pneumonia dehydration ?Underlying etiology managed as discussed 3. Hypokalemia -Corrected per protocol 4. Impaired kidney function ?Do suspect acute kidney injury. Patient creatinine peaked at 4.97 down to 3.41. Renal ultrasound obtained was basically unremarkable. In view of patient kidney function not improving as quickly as expected consult was placed to nephrology -06/21/2021. No significant change in patient kidney function patient was seen in consultation by nephrology. Apparently has underlying history of CKDIIIa 5. Diabetes mellitus type II -patient's oral hypoglycemics held. Placed on long acting insulin, Accu-Cheks a.c. and at bedtime and covered with sliding scale insulin 6. Dyslipidemia -Patient is on statin therapy, continued at home dose 7. Essential hypertension Did continue with home medicine for nephrotoxic ones including lisinopril 8. GERD ?On PPI 7. Prostate CA ?Patient is followed by Dr. Larson as outpatient 8. Physical deconditioning - Requested for PT OT eval and social media community manager to assist with discharge planning 9. Dysphagia ?Patient underwent modified barium swallow recommendation from speech therapy reviewed 10. DVT prophylaxis ?Patient is on heparin for elevated D-dimer Charges/Coding Visit Charges Inpatient E&M: 24702 Subs Hosp L2
--- NOTE | 2021-06-21 15:15 | CASEMGMT ---
TAWANDA received a call from [facility] and they can accept patient. Laura is aware that patient's was also interested in [facility] and TAWANDA has not heard back from them yet. TAWANDA will let Laura know what family decides. Jannet Forman [employer]
[2021-06-21 16:40] LABS: Bedside Glucose 280 mg/dL (70-110)
[2021-06-21 18:22] LABS: Partial Thromboplast Time 68.6 Seconds (24.1-36.2)
[2021-06-21 22:10] LABS: Bedside Glucose 257 mg/dL (70-110)
[2021-06-21] MEDS: Sodium Chloride 0.65% 1 SPRAY SPRAY.BTL 2 SPRAY NASAL (23:03)
--- NOTE | 2021-06-21 23:50 | PCM.PN.REN ---
Subjective Subjective Following for JARRED on CKD. The patient denies increasing shortness of breath. There is no chest pain, nausea or vomiting. Objective Data Objective Data Vital Signs: Vital Signs Temp Pulse Resp BP Pulse Ox 98.4 F 63 18 148/71 H 95 06/21/21 20:45 06/21/21 20:45 06/21/21 20:45 06/21/21 20:45 06/21/21 20:45 Oxygen Flow Rate (L/min) 10 Oxygen Delivery Method High Flow Weight: 76.5 kg Body Mass Index (BMI) 24.9 Intake & Output: Intake and Output for Last 24 Hours 06/19/21 06/20/21 06/21/21 23:59 23:59 23:59 Intake Total 817.23 / 817.23 412.77 / 412.77 250.00 / 250.00 Output Total 1200 / 1200 1325 / 1325 200 / 200 Balance -382.77 / -382.77 -912.23 / -912.23 50.00 / 50.00 Lab / Micro Data Result Diagrams: 06/20/21 08:24 06/21/21 06:55 Labs: Laboratory Results - last 24 hr 06/21/21 00:15: APTT 85.5 H 06/21/21 06:42: POC Glucose 182 H 06/21/21 06:55: Sodium 145, Potassium 3.5, Chloride 112 H, Carbon Dioxide 24.0, Anion Gap 9, BUN 76 H, Creatinine 2.70 H, Estim Creat Clear Calc 23.28, Est GFR (MDRD) Af Amer 30 L, Est GFR (MDRD) Non-Af 25 L, BUN/Creatinine Ratio 28.1 H, Glucose 196 H, Calcium 9.0, Total Bilirubin 0.90, AST 27, ALT 57, Alkaline Phosphatase 73, Total Protein 6.7, Albumin 1.7 L, Globulin 5.0 H, Albumin/Globulin Ratio 0.3 L 06/21/21 06:55: APTT 47.4 H 06/21/21 10:26: POC Glucose 249 H 06/21/21 16:20: POC Glucose 280 H 06/21/21 17:30: APTT 68.6 H 06/21/21 22:00: POC Glucose 257 H Micro: Microbiology 06/14/21 17:08 Blood Culture (Wb) - Anticubital Right Blood Culture - Final No growth in 5 days. 06/14/21 15:30 Blood Culture (Wb) - Anticubital Left Blood Culture - Final No growth in 5 days. 06/17/21 18:00 Urine, Clean Catch Streptococcus pneumoniae Antigen (M - Final 06/17/21 17:55 Urine Catheter - Catheter Legionella Antigen - Final Physical Exam Narrative General: Alert and oriented x3 in no apparent distress. HEENT: Normocephalic, atraumatic. Mucous membranes moist. Heart: Normal S1, S2. No rubs or murmurs. Lungs: Clear to auscultation bilaterally. Abdomen: Normal bowel sound, soft, nontender, no guarding or rebound. Extremity: No clubbing, cyanosis or edema. Assessment & Plan Assessment/Plan (1) JARRED (acute kidney injury): PLAN: JARRED is likely due to ischemic ATN related to sepsis. Serum creatinine peaked at 4.57 mg/dL on 06/17/2021. There has been a gradual improvement of renal function since 06/17/2021. Serum creatinine is now 2.70 mg/dL. There is no need for kidney replacement therapy since renal function is improving. Encouraged the patient to push oral intake since there is no evidence of volume overload. Continue to hold lisinopril. Recheck renal function tomorrow. Current medications are reviewed and are appropriately dosed for his estimated creatinine clearance. (2) Chronic kidney disease, stage 3a: PLAN: Baseline serum creatinine is 1.5 mg/dL in February 2021.The patient likely has underlying diabetic kidney disease. (3) HTN (hypertension): PLAN: We are holding lisinopril because of JARRED. Continue to follow blood pressure. If BP is consistently above 150 mmHg, we can add amlodipine. Lisinopril can be restarted once serum creatinine is below 1.5 mg/dL. (4) COVID-19: PLAN: Management as per hospitalist service. He appears to be clinically improving.
[2021-06-21 23:55] LABS: Partial Thromboplast Time 76.9 Seconds (24.1-36.2)
[2021-06-22] VITALS (20 sets, daily range): BP systolic 148–169; BP diastolic 71–81; PULSE 54–70; RESP 16–20; TEMP 36.3–36.9; O2SAT 85–93
[2021-06-22] MEDS: Insulin Lispro 100 UNIT/ML INSULN.PEN SC ×4 (06:32→23:12)
[2021-06-22] MEDS: Heparin Injection (Vial) 5,000 UNIT/ML VIAL IV (06:40)
[2021-06-22 06:51] LABS: Albumin, Serum 1.6 g/dL (3.2-5.0); BUN 70 mg/dL (7-18); BUN/Creat Ratio 31.2 RATIO (10-20); Calcium,Total 8.8 mg/dL (8.5-10.1); Chloride 113 mmol/L (98-107); Creatinine, Serum 2.24 mg/dL (0.70-1.30); EST Glomerular Filtration Rate 30 mL/min (>60); Est Glom Filt Rate - Afr Amer 37 mL/min (>60); Estimated Creatinine Clearance 28.06 ml/min; Glucose 211 mg/dL (74-106); Phosphorus 2.6 mg/dL (2.5-4.9); Potassium 3.6 mmol/L (3.5-5.1); Sodium Level 144 mmol/L (136-145)
[2021-06-22 06:51] LABS: Bedside Glucose 199 mg/dL (70-110)
--- NOTE | 2021-06-22 08:39 | PCM.PN.HOSP ---
Subjective Subjective Patient seen remains on supplemental oxygen. Currently on 10 L flow per minute with saturation at 92. Plan is for patient to be transferred to a longterm facility once he is able to maintain adequate oxygen saturation with activity whilst on 10 L or less flow per minute Objective Data Objective Data Vital Signs: Vital Signs Temp Pulse Resp BP Pulse Ox 98.4 F 63 18 153/78 H 93 06/22/21 06:30 06/22/21 06:30 06/22/21 06:30 06/22/21 06:30 06/22/21 06:30 Oxygen Flow Rate (L/min) 10 Oxygen Delivery Method High Flow Weight: 75.4 kg Body Mass Index (BMI) 24.9 Intake & Output: Intake and Output for Last 24 Hours 06/20/21 06/21/21 06/22/21 23:59 23:59 23:59 Intake Total 412.77 / 412.77 490.00 / 490.00 492.55 / 492.55 Output Total 1325 / 1325 200 / 200 650 / 650 Balance -912.23 / -912.23 290.00 / 290.00 -157.45 / -157.45 Lab / Micro Data Result Diagrams: 06/20/21 08:24 06/22/21 05:46 Labs: Laboratory Results - last 24 hr 06/21/21 06:55: Sodium 145, Potassium 3.5, Chloride 112 H, Carbon Dioxide 24.0, Anion Gap 9, BUN 76 H, Creatinine 2.70 H, Estim Creat Clear Calc 23.28, Est GFR (MDRD) Af Amer 30 L, Est GFR (MDRD) Non-Af 25 L, BUN/Creatinine Ratio 28.1 H, Glucose 196 H, Calcium 9.0, Total Bilirubin 0.90, AST 27, ALT 57, Alkaline Phosphatase 73, Total Protein 6.7, Albumin 1.7 L, Globulin 5.0 H, Albumin/Globulin Ratio 0.3 L 06/21/21 06:55: APTT 47.4 H 06/21/21 10:26: POC Glucose 249 H 06/21/21 16:20: POC Glucose 280 H 06/21/21 17:30: APTT 68.6 H 06/21/21 22:00: POC Glucose 257 H 06/21/21 23:28: APTT 76.9 H 06/22/21 05:46: Sodium 144, Potassium 3.6, Chloride 113 H, Carbon Dioxide 23.0, BUN 70 H, Creatinine 2.24 H, Estim Creat Clear Calc 28.06, Est GFR (MDRD) Af Amer 37 L, Est GFR (MDRD) Non-Af 30 L, BUN/Creatinine Ratio 31.2 H, Glucose 211 H, Calcium 8.8, Phosphorus 2.6, Albumin 1.6 L 06/22/21 05:46: APTT 36.0 06/22/21 06:28: POC Glucose 199 H Micro: Microbiology 06/14/21 17:08 Blood Culture (Wb) - Anticubital Right Blood Culture - Final No growth in 5 days. 06/14/21 15:30 Blood Culture (Wb) - Anticubital Left Blood Culture - Final No growth in 5 days. 06/17/21 18:00 Urine, Clean Catch Streptococcus pneumoniae Antigen (M - Final 06/17/21 17:55 Urine Catheter - Catheter Legionella Antigen - Final Physical Exam Narrative GENERAL: Frail looking HEENT: Atraumatic; EYES; Anicteric, Normal Conjunctiva NECK; supple, normal thyroid, RESPIRATORY: Diminished to auscultation CARDIOVASCULAR: Regular S1 S2, GI: soft, normoactive bowel sounds, : No Renal angle tenderness; EXTREMITIES: No edema, no clubbing, MUSCULOSKELETAL: no muscle waisting NEURO: Awake; no lateralizing signs. SKIN: No Rash PSYCH; Flat affect Assessment & Plan Assessment/Plan (1) COVID-19: (2) CVA (cerebral vascular accident): QUALIFIERS: CVA mechanism: unspecified Qualified Code(s): I63.9 - Cerebral infarction, unspecified (3) JARRED (acute kidney injury): (4) Acute respiratory failure with hypoxia: PLAN: Patient is a 75-year-old gentleman admitted with generalized weakness loss of appetite and shortness of breath. Diagnosed with COVID-19 pneumonia 1. Acute hypoxic respiratory failure ?Secondary to COVID-19 pneumonia. Patient was outside the window for remdesivir on admission was however placed on Decadron and supplemental oxygen -06/21/2021; patient still requiring high flow oxygen currently 10 L/min flow ?06/22/2021;Patient seen remains on supplemental oxygen. Currently on 10 L flow per minute with saturation at 92. Plan is for patient to be transferred to a longterm facility once he is able to maintain adequate oxygen saturation with activity whilst on 10 L or less flow per minute 2. Acute metabolic encephalopathy secondary to COVID-19 pneumonia dehydration ?Underlying etiology managed as discussed 3. Hypokalemia -Corrected per protocol 4. Impaired kidney function ?Do suspect acute kidney injury. Patient creatinine peaked at 4.97 down to 3.41. Renal ultrasound obtained was basically unremarkable. In view of patient kidney function not improving as quickly as expected consult was placed to nephrology -06/21/2021. No significant change in patient kidney function patient was seen in consultation by nephrology. Apparently has underlying history of CKDIIIa 5. Diabetes mellitus type II -patient's oral hypoglycemics held. Placed on long acting insulin, Accu-Cheks a.c. and at bedtime and covered with sliding scale insulin 6. Dyslipidemia -Patient is on statin therapy, continued at home dose 7. Essential hypertension Did continue with home medicine for nephrotoxic ones including lisinopril 8. GERD ?On PPI 7. Prostate CA ?Patient is followed by Dr. Larson as outpatient 8. Physical deconditioning - Requested for PT OT eval and manager social responsibility to assist with discharge planning 9. Dysphagia ?Patient underwent modified barium swallow recommendation from speech therapy reviewed 10. DVT prophylaxis ?Patient is on heparin for elevated D-dimer Charges/Coding Visit Charges Inpatient E&M: 50427 Subs Hosp L2
[2021-06-22] MEDS: Metoprolol(XL)Succ 100 MG Tablet PO (09:05)
[2021-06-22] MEDS: Sodium Chloride 0.65% 1 SPRAY SPRAY.BTL 2 SPRAY NASAL ×2 (09:05→23:22)
[2021-06-22] MEDS: dexAMETHasone 4 MG Tablet 6 MG PO (09:05)
[2021-06-22] MEDS: Atorvastatin Calcium 40 MG Tablet PO (09:05)
[2021-06-22] MEDS: Pantoprazole Sodium 40 MG Tablet PO (09:06)
[2021-06-22 12:46] LABS: Bedside Glucose 232 mg/dL (70-110)
--- NOTE | 2021-06-22 14:35 | CASEMGMT ---
TAWANDA received a call from [facility] and [facility] can accept patient. TAWANDA called patient's , Anabell back and let her know that both [facility] and [facility] take patient. She asked about visitation. TAWANDA told her SW will find out. TAWANDA spoke with [facility] and Jaimee said that nursing homes are not allowed to restrict visitation anymore. TAWANDA called Anabell back and let her know this information. Anabell then asked if TAWANDA could send a referral to [facility]. TAWANDA told her SW will work on a referral. Patient is now doing worse in regards to his O2 requirements. However, TAWANDA did call Lesa at [facility] regarding referral and also faxed information. Jannet Forman FERMENTATION OPERATOR TINO
--- NOTE | 2021-06-22 14:53 | PN.RENAL_ITS ---
Subjective Subjective Resting in bed, denies any complaints. Objective Data Objective Data Vital Signs: Vital Signs Temp Pulse Resp BP Pulse Ox 97.9 F 61 20 H 169/74 H 91 06/22/21 11:52 06/22/21 11:52 06/22/21 11:52 06/22/21 11:52 06/22/21 13:23 Oxygen Flow Rate (L/min) 91 Oxygen Delivery Method High Flow Weight: 75.4 kg Body Mass Index (BMI) 24.9 Intake & Output: Intake and Output for Last 24 Hours 06/20/21 06/21/21 06/22/21 23:59 23:59 23:59 Intake Total 412.77 / 412.77 490.00 / 490.00 618.90 / 618.90 Output Total 1325 / 1325 200 / 200 650 / 650 Balance -912.23 / -912.23 290.00 / 290.00 -31.10 / -31.10 Lab / Micro Data Result Diagrams: 06/20/21 08:24 06/22/21 05:46 Labs: Laboratory Results - last 24 hr 06/21/21 16:20: POC Glucose 280 H 06/21/21 17:30: APTT 68.6 H 06/21/21 22:00: POC Glucose 257 H 06/21/21 23:28: APTT 76.9 H 06/22/21 05:46: Sodium 144, Potassium 3.6, Chloride 113 H, Carbon Dioxide 23.0, BUN 70 H, Creatinine 2.24 H, Estim Creat Clear Calc 28.06, Est GFR (MDRD) Af Amer 37 L, Est GFR (MDRD) Non-Af 30 L, BUN/Creatinine Ratio 31.2 H, Glucose 211 H, Calcium 8.8, Phosphorus 2.6, Albumin 1.6 L 06/22/21 05:46: APTT 36.0 06/22/21 06:28: POC Glucose 199 H 06/22/21 11:50: POC Glucose 232 H 06/22/21 12:50: APTT 107.0 H* Micro: Microbiology 06/14/21 17:08 Blood Culture (Wb) - Anticubital Right Blood Culture - Final No growth in 5 days. 06/14/21 15:30 Blood Culture (Wb) - Anticubital Left Blood Culture - Final No growth in 5 days. 06/17/21 18:00 Urine, Clean Catch Streptococcus pneumoniae Antigen (M - Final 06/17/21 17:55 Urine Catheter - Catheter Legionella Antigen - Final Physical Exam Narrative General: Alert and oriented x3 in no apparent distress. HEENT: Normocephalic, atraumatic. Mucous membranes moist. Heart: Normal S1, S2. No rubs or murmurs. Lungs: Clear to auscultation bilaterally. Abdomen: Normal bowel sound, soft, nontender, no guarding or rebound. Extremity: No clubbing, cyanosis or edema. Assessment & Plan Assessment/Plan (1) JARRED (acute kidney injury): PLAN: JARRED is likely due to ischemic ATN related to sepsis. Nonoliguric. Serum creatinine peaked at 4.97 mg/dL on 06/17/2021 (creatinine was 2.3 mg/dL on admission, 06/14/2021). There has been a gradual improvement of renal function since 06/17/2021. Serum creatinine is now 2.24 mg/dL. There is no need for kidney replacement therapy since renal function is improving. Encouraged the patient to push oral intake since there is no evidence of volume overload. He doesn't like thickened liquids and suspect patient has poor oral intake. Albuimin 1.6 Continue to hold lisinopril. Recheck renal function tomorrow. Current medications are reviewed and are appropriately dosed for his estimated creatinine clearance. Patient may need fluid bolus tomorrow if appetite not improved (2) Chronic kidney disease, stage 3a: PLAN: Baseline serum creatinine is 1.5 mg/dL in February 2021. The patient likely has underlying diabetic kidney disease. (3) HTN (hypertension): PLAN: We are holding lisinopril because of JARRED. Continue to follow blood pressures. Patient is on Toprol 100 mg. Blood pr essures were low on admission, improving since admission. Today Bps elevated, if BP is consistently above 150 mmHg, we can add amlodipine. Lisinopril can be restarted once serum creatinine is below 1.5 mg/dL. (4) COVID-19: PLAN: Management as per hospitalist service. He appears to be clinically improving. Requiring high flow O2.
[2021-06-22 17:31] LABS: Bedside Glucose 279 mg/dL (70-110)
[2021-06-22 19:42] LABS: Partial Thromboplast Time 58.7 Seconds (24.1-36.2)
[2021-06-22 23:56] LABS: Bedside Glucose 254 mg/dL (70-110)
[2021-06-23] VITALS (24 sets, daily range): BP systolic 137–164; BP diastolic 69–83; PULSE 54–68; RESP 12–26; TEMP 36.6–36.9; O2SAT 85–97
[2021-06-23] MEDS: Insulin Lispro 100 UNIT/ML INSULN.PEN SC ×4 (06:33→21:45)
[2021-06-23 06:56] LABS: Bedside Glucose 165 mg/dL (70-110)
[2021-06-23 07:46] LABS: Anion Gap 10 (5-15); BUN 58 mg/dL (7-18); BUN/Creat Ratio 31.4 RATIO (10-20); Calcium,Total 8.4 mg/dL (8.5-10.1); Chloride 112 mmol/L (98-107); Creatinine, Serum 1.85 mg/dL (0.70-1.30); EST Glomerular Filtration Rate 38 mL/min (>60); Est Glom Filt Rate - Afr Amer 46 mL/min (>60); Estimated Creatinine Clearance 33.97 ml/min; Glucose 199 mg/dL (74-106); Potassium 3.5 mmol/L (3.5-5.1); Sodium Level 146 mmol/L (136-145)
--- NOTE | 2021-06-23 07:53 | PN.HOSP_ITS ---
Subjective Subjective Patient seen no change in clinical condition. Still requiring high flow oxygen. Did update patient's regarding patient's current clinical condition and the plans for discharge Objective Data Objective Data Vital Signs: Vital Signs Temp Pulse Resp BP Pulse Ox 98.4 F 54 L 20 H 155/80 H 93 06/23/21 02:30 06/23/21 03:00 06/23/21 02:30 06/23/21 02:30 06/23/21 07:51 Oxygen Flow Rate (L/min) 15 Oxygen Delivery Method High Flow Weight: 76.1 kg Body Mass Index (BMI) 24.9 Intake & Output: Intake and Output for Last 24 Hours 06/21/21 06/22/21 06/23/21 23:59 23:59 23:59 Intake Total 490.00 / 490.00 740.00 / 740.00 Output Total 200 / 200 650 / 650 275 / 275 Balance 290.00 / 290.00 90.00 / 90.00 -275 / -275 Lab / Micro Data Result Diagrams: 06/20/21 08:24 06/23/21 07:10 Labs: Laboratory Results - last 24 hr 06/22/21 11:50: POC Glucose 232 H 06/22/21 12:50: APTT 107.0 H* 06/22/21 16:27: POC Glucose 279 H 06/22/21 19:00: APTT 58.7 H 06/22/21 23:12: POC Glucose 254 H 06/23/21 01:20: APTT 74.0 H 06/23/21 06:29: POC Glucose 165 H 06/23/21 07:10: Sodium 146 H, Potassium 3.5, Chloride 112 H, Carbon Dioxide 24.0, Anion Gap 10, BUN 58 H, Creatinine 1.85 H, Estim Creat Clear Calc 33.97, Est GFR (MDRD) Af Amer 46 L, Est GFR (MDRD) Non-Af 38 L, BUN/Creatinine Ratio 31.4 H, Glucose 199 H, Calcium 8.4 L Micro: Microbiology 06/14/21 17:08 Blood Culture (Wb) - Anticubital Right Blood Culture - Final No growth in 5 days. 06/14/21 15:30 Blood Culture (Wb) - Anticubital Left Blood Culture - Final No growth in 5 days. 06/17/21 18:00 Urine, Clean Catch Streptococcus pneumoniae Antigen (M - Final 06/17/21 17:55 Urine Catheter - Catheter Legionella Antigen - Final Physical Exam Narrative GENERAL: Frail looking HEENT: Atraumatic; EYES; Anicteric, Normal Conjunctiva NECK; supple, normal thyroid, RESPIRATORY: Diminished to auscultation CARDIOVASCULAR: Regular S1 S2, GI: soft, normoactive bowel sounds, : No Renal angle tenderness; EXTREMITIES: No edema, no clubbing, MUSCULOSKELETAL: no muscle waisting NEURO: Awake; no lateralizing signs. SKIN: No Rash PSYCH; Flat affect Assessment & Plan Assessment/Plan (1) COVID-19: (2) CVA (cerebral vascular accident): QUALIFIERS: CVA mechanism: unspecified Qualified Code(s): I63.9 - Cerebral infarction, unspecified (3) JARRED (acute kidney injury): (4) Acute respiratory failure with hypoxia: PLAN: Patient is a 75-year-old gentleman admitted with generalized weakness loss of appetite and shortness of breath. Diagnosed with COVID-19 pneumonia 1. Acute hypoxic respiratory failure ?Secondary to COVID-19 pneumonia. Patient was outside the window for remdesivir on admission was however placed on Decadron and supplemental oxygen -06/21/2021; patient still requiring high flow oxygen currently 10 L/min flow ?06/22/2021;Patient seen remains on supplemental oxygen. Currently on 10 L flow per minute with saturation at 92. Plan is for patient to be transferred to a long-term facility once he is able to maintain adequate oxygen saturation with activity whilst on 10 L or less flow per minute ?06/23/2021; Patient seen no change in clinical condition. Still requiring high flow oxygen. Did update patient's regarding patient's current clinical condition and the plans for discharge 2. Acute metabolic encephalopathy secondary to COVID-19 pneumonia dehydration ?Underlying etiology managed as discussed 3. Hypokalemia -Corrected per protocol 4. Impaired kidney function ?Do suspect acute kidney injury. Patient creatinine peaked at 4.97 down to 3.41. Renal ultrasound obtained was basically unremarkable. In view of patient kidney function not improving as quickly as expected consult was placed to nephrology -06/21/2021. No significant change in patient kidney function patient was seen in consultation by nephrology. Apparently has underlying history of CKDIIIa ?06/23/2021; patient kidney function continues to improve creatinine down to 1.85 which is close to his baseline 5. Diabetes mellitus type II -patient's oral hypoglycemics held. Placed on long acting insulin, Accu-Cheks a.c. and at bedtime and covered with sliding scale insulin 6. Dyslipidemia -Patient is on statin therapy, continued at home dose 7. Essential hypertension Did continue with home medicine for nephrotoxic ones including lisinopril 8. GERD ?On PPI 7. Prostate CA ?Patient is followed by Dr. Henriquez as outpatient 8. Physical deconditioning - Requested for PT OT eval and social services director to assist with discharge planning 9. Dysphagia ?Patient underwent modified barium swallow recommendation from speech therapy reviewed 10. DVT prophylaxis ?Patient is on heparin for elevated D-dimer Charges/Coding Visit Charges Inpatient E&M: 00267 Subs Hosp L2
[2021-06-23 08:05] LABS: Partial Thromboplast Time 75.3 Seconds (24.1-36.2)
[2021-06-23] MEDS: dexAMETHasone 4 MG Tablet 6 MG PO (09:27)
[2021-06-23] MEDS: Metoprolol(XL)Succ 100 MG Tablet PO (09:28)
[2021-06-23] MEDS: Pantoprazole Sodium 40 MG Tablet PO (09:28)
[2021-06-23] MEDS: Atorvastatin Calcium 40 MG Tablet PO (09:28)
--- NOTE | 2021-06-23 09:45 | CASEMGMT ---
TAWANDA spoke with Lesa from [facility] and they can accept patient as long as his brings his Cancer drug in its original bottle. TAWANDA let Lesa know he is not ready yet, but SW will keep her updated. TAWANDA then called patient's , Anabell and let her know [facility] can take patient when he is ready. TAWANDA let Anabell know he is not ready today. TAWANDA will keep her updated on when he is ready. She thanked TAWANDA. TAWANDA then called [facility] and let Laura know that patient's chose another facility. TAWANDA also called Jaimee at [facility] and let her know patient's chose another facility. Plan: d/c to [facility] under skilled level of care when medically ready. Jannet Forman CLOUD SUBJECT MATTER EXPERT TINO
--- NOTE | 2021-06-23 11:17 | PN.RENAL_ITS ---
Documented by User: TONY Schwartz 06/23/21 11:23 Subjective Subjective Resting in bed, no complaints. No overnight events. Objective Data Objective Data Vital Signs: Vital Signs Temp Pulse Resp BP Pulse Ox 97.8 F 65 18 143/78 H 97 06/23/21 09:30 06/23/21 09:30 06/23/21 09:30 06/23/21 09:30 06/23/21 10:14 Oxygen Flow Rate (L/min) 15 Oxygen Delivery Method High Flow Weight: 76.1 kg Body Mass Index (BMI) 24.9 Intake & Output: Intake and Output for Last 24 Hours 06/21/21 06/22/21 06/23/21 23:59 23:59 23:59 Intake Total 490.00 / 490.00 740.00 / 740.00 Output Total 200 / 200 650 / 650 275 / 275 Balance 290.00 / 290.00 90.00 / 90.00 -275 / -275 Lab / Micro Data Result Diagrams: 06/20/21 08:24 06/24/21 06:40 Labs: Laboratory Results - last 24 hr 06/22/21 11:50: POC Glucose 232 H 06/22/21 12:50: APTT 107.0 H* 06/22/21 16:27: POC Glucose 279 H 06/22/21 19:00: APTT 58.7 H 06/22/21 23:12: POC Glucose 254 H 06/23/21 01:20: APTT 74.0 H 06/23/21 06:29: POC Glucose 165 H 06/23/21 07:10: Sodium 146 H, Potassium 3.5, Chloride 112 H, Carbon Dioxide 24.0, Anion Gap 10, BUN 58 H, Creatinine 1.85 H, Estim Creat Clear Calc 33.97, Est GFR (MDRD) Af Amer 46 L, Est GFR (MDRD) Non-Af 38 L, BUN/Creatinine Ratio 31.4 H, Glucose 199 H, Calcium 8.4 L 06/23/21 07:10: APTT 75.3 H Micro: Microbiology 06/14/21 17:08 Blood Culture (Wb) - Anticubital Right Blood Culture - Final No growth in 5 days. 06/14/21 15:30 Blood Culture (Wb) - Anticubital Left Blood Culture - Final No growth in 5 days. 06/17/21 18:00 Urine, Clean Catch Streptococcus pneumoniae Antigen (M - Final 06/17/21 17:55 Urine Catheter - Catheter Legionella Antigen - Final Physical Exam Narrative General: Alert and oriented x3 in no apparent distress. HEENT: Normocephalic, atraumatic. Mucous membranes moist. Heart: Normal S1, S2. No rubs or murmurs. Lungs: Clear to auscultation bilaterally. Abdomen: Normal bowel sound, soft, nontender, no guarding or rebound. Extremity: No clubbing, cyanosis or edema. Assessment & Plan Assessment/Plan (1) JARRED (acute kidney injury): PLAN: JARRED is likely due to ischemic ATN related to sepsis. Nonoliguric. Serum creatinine peaked at 4.97 mg/dL on 06/17/2021 (creatinine was 2.3 mg/dL on admission, 06/14/2021). There has been a gradual improvement of renal function since 06/17/2021. Serum creatinine is now 1.85 mg/dL. There is no need for DIRECTOR OF CATERING since renal function is improving. Encouraged the patient to push oral intake. He doesn't like thickened liquids and suspect patient has poor oral intake. Today sodium is up to 146. Need to increase free water intake. Albuimin 1.6 Continue to hold lisinopril. Recheck renal function tomorrow. Current medications are reviewed and are appropriately dosed for his estimated creatinine clearance. Patient may need small fluid bolus tomorrow if appetite not improved (2) Chronic kidney disease, stage 3a: PLAN: Baseline serum creatinine is 1.5 mg/dL in February 2021. The patient likely has underlying diabetic kidney disease. (3) HTN (hypertension): PLAN: We are holding lisinopril because of JARRED. Continue to follow blood pressures. Patient is on Toprol 100 mg. Blood pressures were low on admission, improving since admission. (4) COVID-19: PLAN: Management as per hospitalist service. Requiring high flow O2, 15L. on heparin gtt for elevated D-dimer Documented by User: Dr. Guille Fuentes MD 06/24/21 15:10 Objective Data Lab / Micro Data Result Diagrams: 06/20/21 08:24 06/24/21 06:40
[2021-06-23 11:55] LABS: Bedside Glucose 189 mg/dL (70-110)
--- NOTE | 2021-06-23 13:40 | RAD_ITS ---
STUDY: X-RAY CHEST REASON FOR EXAM: Male, 75 years old. CHEST PAIN dyspnea TECHNIQUE: XR Chest 1 View COMPARISON: 06.17.21 FINDINGS: There is no demonstrated pleural abnormality. There is bilateral infiltrate. Normal size heart. Normal mediastinum and thomas. Normal visualized pulmonary arteries. There is atherosclerotic calcification of the aortic arch with tortuosity. There are diffuse degenerative changes of the visualized thoracic spine. There is degenerative osteoarthritis of the bilateral shoulders. There is no demonstrated abnormality of the visualized soft tissue structures of the upper abdomen. RAD/Chest 1 View (Portable) IMPRESSION: There has been no change in the appearance of the chest since the prior study. Electronically Signed: Neymar Cobb MD at 18:27 EST , Service support ,
[2021-06-23 17:31] LABS: Bedside Glucose 212 mg/dL (70-110)
[2021-06-23 22:26] LABS: Bedside Glucose 212 mg/dL (70-110)
[2021-06-24] VITALS (23 sets, daily range): BP systolic 47–158; BP diastolic 39–97; PULSE 0–106; RESP 12–52; TEMP 36.1–39.2; O2SAT 75–97
[2021-06-24] MEDS: Insulin Lispro 100 UNIT/ML INSULN.PEN SC (06:37)
[2021-06-24 06:50] LABS: Bedside Glucose 187 mg/dL (70-110)
[2021-06-24 07:15] LABS: Anion Gap 4 (5-15); BUN 52 mg/dL (7-18); BUN/Creat Ratio 30.1 RATIO (10-20); Calcium,Total 8.2 mg/dL (8.5-10.1); Chloride 116 mmol/L (98-107); Creatinine, Serum 1.73 mg/dL (0.70-1.30); EST Glomerular Filtration Rate 41 mL/min (>60); Est Glom Filt Rate - Afr Amer 50 mL/min (>60); Estimated Creatinine Clearance 36.33 ml/min; Glucose 208 mg/dL (74-106); Potassium 3.7 mmol/L (3.5-5.1); Sodium Level 147 mmol/L (136-145)
--- NOTE | 2021-06-24 07:17 | NURSING ---
This RN assuming care of pt at this time
[2021-06-24 07:26] LABS: Partial Thromboplast Time 99.8 Seconds (24.1-36.2)
--- NOTE | 2021-06-24 08:01 | PCM.PN.HOSP ---
Subjective Subjective Patient had to be placed BiPAP on FiO2 of 100% due to rapidly deteriorating respiratory condition. Case discussed with family. Patient CODE STATUS on admission was DNR CCA no intubation. Per family patient probably did not have an understanding of what that meant. CODE STATUS was subsequently changed to full code. Consultation placed to pulmonary medicine Objective Data Objective Data Vital Signs: Vital Signs Temp Pulse Resp BP Pulse Ox 97.8 F 56 L 19 H 150/68 H 95 06/24/21 04:00 06/24/21 07:00 06/24/21 04:00 06/24/21 04:00 06/24/21 04:13 Oxygen Flow Rate (L/min) 60 Oxygen Delivery Method Bi-pap Weight: 73.5 kg Body Mass Index (BMI) 24.9 Intake & Output: Intake and Output for Last 24 Hours 06/22/21 06/23/21 06/24/21 23:59 23:59 23:59 Intake Total 740.00 / 740.00 450 / 450 228.27 / 228.27 Output Total 650 / 650 275 / 375 500 / 500 Balance 90.00 / 90.00 175 / 75 -271.73 / -271.73 Lab / Micro Data Result Diagrams: 06/20/21 08:24 06/24/21 06:40 Labs: Laboratory Results - last 24 hr 06/23/21 07:10: APTT 75.3 H 06/23/21 11:18: POC Glucose 189 H 06/23/21 17:12: POC Glucose 212 H 06/23/21 21:42: POC Glucose 212 H 06/24/21 06:36: POC Glucose 187 H 06/24/21 06:40: Sodium 147 H, Potassium 3.7, Chloride 116 H, Carbon Dioxide 27.0, Anion Gap 4 L, BUN 52 H, Creatinine 1.73 H, Estim Creat Clear Calc 36.33, Est GFR (MDRD) Af Amer 50 L, Est GFR (MDRD) Non-Af 41 L, BUN/Creatinine Ratio 30.1 H, Glucose 208 H, Calcium 8.2 L 06/24/21 06:40: APTT 99.8 H* Micro: Microbiology 06/14/21 17:08 Blood Culture (Wb) - Anticubital Right Blood Culture - Final No growth in 5 days. 06/14/21 15:30 Blood Culture (Wb) - Anticubital Left Blood Culture - Final No growth in 5 days. 06/17/21 18:00 Urine, Clean Catch Streptococcus pneumoniae Antigen (M - Final 06/17/21 17:55 Urine Catheter - Catheter Legionella Antigen - Final Radiography Diagnostic Testing: Radiology Impression Chest X-Ray 06/23/21 13:40 IMPRESSION: There has been no change in the appearance of the chest since the prior study. Electronically Signed: Neymar Cobb MD at 18:27 EST , Service support , Physical Exam Narrative GENERAL: Frail looking, on BiPAP HEENT: Atraumatic; EYES; Anicteric, Normal Conjunctiva NECK; supple, normal thyroid, RESPIRATORY: Diminished to auscultation CARDIOVASCULAR: Regular S1 S2, GI: soft, normoactive bowel sounds, : No Renal angle tenderness; EXTREMITIES: No edema, no clubbing, MUSCULOSKELETAL: no muscle waisting NEURO: Awake; no lateralizing signs. SKIN: No Rash PSYCH; Flat affect Assessment & Plan Assessment/Plan (1) COVID-19: (2) CVA (cerebral vascular accident): QUALIFIERS: CVA mechanism: unspecified Qualified Code(s): I63.9 - Cerebral infarction, unspecified (3) JARRED (acute kidney injury): (4) Acute respiratory failure with hypoxia: PLAN: Patient is a 75-year-old gentleman admitted with generalized weakness loss of appetite and shortness of breath. Diagnosed with COVID-19 pneumonia 1. Acute hypoxic respiratory failure ?Secondary to COVID-19 pneumonia. Patient was outside the window for remdesivir on admission was however placed on Decadron and supplemental oxygen -06/21/2021; patient still requiring high flow oxygen currently 10 L/min flow ?06/22/2021;Patient seen remains on supplemental oxygen. Currently on 10 L flow per minute with saturation at 92. Plan is for patient to be transferred to a fdc facility once he is able to maintain adequate oxygen saturation with activity whilst on 10 L or less flow per minute ?06/23/2021; Patient seen no change in clinical condition. Still requiring high flow oxygen. Did update patient's regarding patient's current clinical condition and the plans for discharge -06/24/2021; Patient had to be placed BiPAP on FiO2 of 100% due to rapidly deteriorating respiratory condition. Case discussed with family. Patient CODE STATUS on admission was DNR CCA no intubation. Per family patient probably did not have an understanding of what that meant. CODE STATUS was subsequently changed to full code. Consultation placed to pulmonary medicine 2. Acute metabolic encephalopathy secondary to COVID-19 pneumonia dehydration ?Underlying etiology managed as discussed 3. Hypokalemia -Corrected per protocol 4. Impaired kidney function ?Do suspect acute kidney injury. Patient creatinine peaked at 4.97 down to 3.41. Renal ultrasound obtained was basically unremarkable. In view of patient kidney function not improving as quickly as expected consult was placed to nephrology -06/21/2021. No significant change in patient kidney function patient was seen in consultation by nephrology. Apparently has underlying history of CKDIIIa ?06/23/2021; patient kidney function continues to improve creatinine down to 1.85 which is close to his baseline 5. Diabetes mellitus type II -patient's oral hypoglycemics held. Placed on long acting insulin, Accu-Cheks a.c. and at bedtime and covered with sliding scale insulin 6. Dyslipidemia -Patient is on statin therapy, continued at home dose 7. Essential hypertension Did continue with home medicine for nephrotoxic ones including lisinopril 8. GERD ?On PPI 7. Prostate CA ?Patient is followed by Dr. Henriquez as outpatient 8. Physical deconditioning - Requested for PT OT eval and social insurance adviser to assist with discharge planning 9. Dysphagia ?Patient underwent modified barium swallow recommendation from speech therapy reviewed 10. DVT prophylaxis ?Patient is on heparin for elevated D-dimer Charges/Coding Visit Charges Inpatient E&M: 33366 Subs Hosp L3
[2021-06-24] MEDS: Furosemide 100 MG/10 ML Vial 80 MG IV (11:47)
[2021-06-24] MEDS: 0.9% Saline Lock 10 ML Syringe IV ×2 (11:47→14:20)
[2021-06-24 12:06] LABS: Bedside Glucose 152 mg/dL (70-110)
--- NOTE | 2021-06-24 12:15 | NURSING ---
Update provided to Anabell regarding transfer to ICU and need for intubation. Anabell voiced understanding
[2021-06-24 12:17] LABS: BNP,B-Type NATRIURETIC PEPTIDE 538.7 pg/mL (0-100)
[2021-06-24 13:42] LABS: CPK Total, Creatine Kinase 21 U/L (39-308); Triglycerides 185 mg/dL
[2021-06-24] MEDS: Midazolam 2 MG/2 ML Syringe 4 MG IV (13:46)
[2021-06-24] MEDS: Etomidate 20 MG/10 ML Vial IV (13:49)
[2021-06-24] MEDS: Propofol 10MG/Ml 1,000 MG/100 ML Bottle 8.8 MG CONT INF (14:00)
--- NOTE | 2021-06-24 14:02 | CON.PCM.CC_ITS ---
Assessment & Plan Assessment/Plan (1) Acute respiratory failure with hypoxia: (2) COVID-19: PLAN: RECOMMENDATIONS: 1. Continue patient on assist control mode of mechanical ventilation. Wean FiO2/PEEP for saturations greater than 90%. 2. Given worsening oxygenation status, will start empiric antimicrobials. 3. Obtain sputum and send for culture. 4. Obtain arterial blood gas 1 hour post intubation. 5. Check BNP, procalcitonin and MRSA screen. 6. Transition from heparin to Lovenox given improving renal function. 7. Nutrition consultation for tube feed recommendations. 8. Continue appropriate GI prophylaxis. IMPRESSIONS: 1. Acute hypoxemic respiratory failure secondary to COVID-19 pneumonia The patient was initially admitted to the hospital on June 14 with COVID-19 pneumonia and acute on chronic kidney disease. His oxygenation status has progressively worsened over the course of his hospitalization. Ultimately, the patient required transfer to the ICU on June 24 and subsequent intubation after developing hypoxemia which was refractory to the use of noninvasive positive pressure ventilatory support. The patient was not deemed to be a candidate for remdesivir on admission. The patient is not a candidate for baricitinib. In light of the patient's worsening oxygenation status, will start empiric antimicrobials. Plan to recheck D-dimer, procalcitonin and BNP. Continue assist control mode of mechanical ventilation and wean FiO2/PEEP for saturations greater than 90%. 2. Acute on chronic kidney disease Likely secondary to ischemic ATN in the setting of #1. Creatinine is slowly improving. Nephrology is following. Continue current supportive measures. 3. Advanced age/diabetes mellitus/hypertension/GERD/hyperlipidemia Complicates care, management, recovery and prognosis. Hold home antihypertensives. Obtain nutrition consultation for tube feed recommendations. Continue sliding scale coverage. TIME: 45 minutes of critical care time, independent of procedures, was spent addressing the patient's acute hypoxemic respiratory failure secondary to COVID- 19 pneumonia, acute on chronic kidney disease, review of all data and collaboration with the care team. HPI Consult Data Date of Consult: 06/24/21 HPI Narrative Reason for Consultation: Acute hypoxemic respiratory failure secondary to COVID- 19 pneumonia HPI Narrative: The patient is a 75-year-old male, with a history as outlined below, who initially presented to the emergency department on June 14 with progressive dyspnea and nonproductive cough. The patient symptom onset was sometime around June 05. He apparently tested positive for Covid via a home test on June 10. The patient was also evaluated in the emergency department on June 11, at which time, a repeat rapid test was completed and also found to be positive. The patient's medical history is significant for chronic kidney disease, diabetes mellitus, hypertension and prostate cancer. On initial presentation to the emergency department, the patient was maintaining appropriate oxygen saturations on room air. The patient was noted to have acute on chronic kidney disease. D-dimer was elevated at 2.2. Chest imaging revealed multifocal bilateral infiltrates. The patient was subsequently admitted to the progressive care unit. He was not felt to be a candidate for remdesivir. The patient was started on Decadron. The patient's hospital course was complicated by the development of confusion and aphasia on June 15. Initial head CT was unremarkable. MRI was negative for CVA. Over the course of his hospitalization, the patient's renal function slowly improved. However, the patient continued to decompensate from a respiratory perspective with increasing oxygen demand. Yesterday, the patient had to be transitioned from heated high flow to noninvasive positive pressure ventilatory support. This morning, he was noted to be saturating in the mid 80s on AVAPS therapy with an FiO2 requirement of 100%. The patient is currently documented to be overall net +650 mL for the hospitalization. On arrival to the ICU, the patient was notably tachypneic with increased work of breathing and saturating in the 80s on 100% FiO2. He reported difficulty with breathing. His desire to proceed with intubation was confirmed. Intubation Indication: Respiratory failure Consent was obtained from: Patient The patient was placed in the appropriate sniffing position. Preoxygenated sedation via [id number] was provided for a minimum of 3 minutes. The patient had continuous cardiac as well as pulse oximetry monitoring during the procedure. Procedure sedation was provided by the administration of 4 mg of Versed, 20 mg of etomidate and 100 mg of succinylcholine. Direct laryngoscopy was then performed using a number 4 MAC blade, which revealed a grade 1 view. A 7.5 mm endotracheal tube was visualized advancing between the cords to the level of 23 cm at the lip. The stylette was then removed and discarded. Tube placement was confirmed by fogging in the tube along with equal and bilateral breath sounds. Colorimetric change was visualized on the CO2 meter. The cuff was then inflated and the tube secured using a commercially available device. A good pulse oximetry waveform was seen on the monitor throughout the procedure. A portable chest x-ray has been ordered to confirm appropriate placement. The patient tolerated the procedure well. [facility] Medical History (Updated 06/21/21 @ 23:[address] Guille Fuentes MD) Cancer Diabetes GERD (gastroesophageal reflux disease) Hearing loss, left Hearing loss, right Hypercholesteremia Hypertension Kidney disease Myocardial infarct Non-smoker Osteoporosis Prostate cancer Skin cancer Vision loss of left eye Wears hearing aid in both ears Home Medications abiraterone 1,000 mg PO DAILY 06/14/21 [History Last Taken 3 Days Ago ~06/11/21] dulaglutide [Trulicity] 1.5 mg SUBCUT SA 06/14/21 [History Last Taken 06/04/21] furosemide 20 mg PO DAILY 06/14/21 [History Last Taken 3 Days Ago ~06/11/21] gemfibrozil 600 mg PO BID 06/14/21 [History Last Taken 3 Days Ago ~06/11/21] lisinopril 20 mg PO DAILY 06/14/21 [History Last Taken 3 Days Ago ~06/11/21] metformin 850 mg PO BID 06/14/21 [History Last Taken 3 Days Ago ~06/11/21] metoprolol succinate 100 mg PO DAILY 06/14/21 [History Last Taken 3 Days Ago ~06/11/21] pantoprazole 40 mg PO DAILY 06/14/21 [History Last Taken 3 Days Ago ~06/11/21] prednisone 5 mg PO BID 06/14/21 [History Last Taken 3 Days Ago ~06/11/21] rosuvastatin 20 mg PO DAILY 06/14/21 [History Last Taken 3 Days Ago ~06/11/21] Allergy/AdvReac Type Severity Reaction Status Date / Time No Known Allergies Allergy Verified 06/11/21 11:17 Family History (Updated 06/14/21 @ 19:[address] Randy Kathleen MD) Other Diabetes Heart disease Surgical History (Updated 06/15/21 @ 09:50 by Rimma Avila) H/O cardiac catheterization History of coronary artery stent placement Hx of rotator cuff surgery Social History Smoking Status: Never smoker ROS Review of Systems ROS Unobtainable: due to endotracheal tube Physical Exam Const General Appearance: intubated and patient mechanically ventilated HEENT normocephalic and head/scalp atraumatic Mouth: endotracheal tube in place and OG tube in place Eyes PERRL and conjunctivae normal Neck supple General: trachea midline Chest inspection of chest normal Resp Effort and Inspection: tachypneic Auscultation: diminished lung sounds Cardio S1 normal heart sound and S2 normal heart sound Rate: tachycardic GI normal to inspection, nondistended, normoactive bowel sounds Extremity no clubbing, cyanosis or edema Skin no rashes or lesions noted Neuro Sensorium / Orientation: sedated on vent Lab / Micro Data Result Diagrams: 06/20/21 08:24 06/24/21 06:40 Labs: Laboratory Results - last 24 hr 06/23/21 17:12: POC Glucose 212 H 06/23/21 21:42: POC Glucose 212 H 06/24/21 06:36: POC Glucose 187 H 06/24/21 06:40: Sodium 147 H, Potassium 3.7, Chloride 116 H, Carbon Dioxide 27.0, Anion Gap 4 L, BUN 52 H, Creatinine 1.73 H, Estim Creat Clear Calc 36.33, Est GFR (MDRD) Af Amer 50 L, Est GFR (MDRD) Non-Af 41 L, BUN/Creatinine Ratio 30.1 H, Glucose 208 H, Calcium 8.2 L 06/24/21 06:40: APTT 99.8 H* 06/24/21 06:40: B-Natriuretic Peptide 538.7 H 06/24/21 06:40: Total Creatine Kinase 21 L, Triglycerides 185 06/24/21 11:40: POC Glucose 152 H Radiology Impression Chest X-Ray 06/23/21 13:40 IMPRESSION: There has been no change in the appearance of the chest since the prior study. Electronically Signed: Neymar Cobb MD at 18:27 EST , Service support , Charges/Coding Procedures Hospitalists Procedures: [id number] Critial Care 1st Hr
--- NOTE | 2021-06-24 14:10 | RAD_ITS ---
STUDY: X-RAY CHEST REASON FOR EXAM: Male, 75 years old. ETT and OGT placement TECHNIQUE: Single AP portable view of the chest. COMPARISON: Comparison is made with prior study dated 06/23/2021. FINDINGS: An endotracheal tube is in situ. The tip is at 4.6 cm proximal to the constanza. The tip of the orogastric tube is just distal to the gastroesophageal junction. Persistent bilateral pulmonary infiltrates. Since prior study, there has been improved aeration. There is no demonstrated pleural abnormality. Normal size heart. Normal mediastinum and thomas. Normal visualized pulmonary arteries. There is atherosclerotic tortuosity of the aortic arch and descending thoracic aorta. There are diffuse degenerative changes of the visualized thoracic spine. Normal visualized ribs, clavicles, and shoulders. There is no demonstrated abnormality of the visualized soft tissue structures of the upper abdomen. RAD/Chest 1 View (Portable) IMPRESSION: The tip of the endotracheal tube is at 4.6 times approximately constanza. The tip of the orogastric tube is just distal to the gastroesophageal junction. Persistent bilateral infiltrates although there has been improvement as compared to prior study. Electronically Signed: Rafy Candelaria MD at 14:36 EST , Service support ,
--- NOTE | 2021-06-24 14:27 | RAD_ITS ---
STUDY: X-RAY CHEST REASON FOR EXAM: Male, 75 years old. CHEST PAIN Respiratory Failure TECHNIQUE: XR Chest 1 View COMPARISON: Study done earlier today. FINDINGS: There is no demonstrated pleural abnormality. There is bilateral infiltrate. There is an NGT and ET tube in place. Normal size heart. Normal mediastinum and thomas. Normal visualized pulmonary arteries. There is atherosclerotic calcification of the aortic arch with tortuosity. There are diffuse degenerative changes of the visualized thoracic spine. There is degenerative osteoarthritis of the bilateral shoulders. There is no demonstrated abnormality of the visualized soft tissue structures of the upper abdomen. RAD/Chest 1 View (Portable) IMPRESSION: There has been no change in the appearance of the chest since the prior study. Electronically Signed: Neymar Cobb MD at 16:59 EST , Service support ,
[2021-06-24] MEDS: Enoxaparin 80 MG/0.8 ML Syringe SC (15:07)
--- NOTE | 2021-06-24 15:10 | PCM.PN.REN ---
Subjective Subjective Following for JARRED on CKD. The patient has been moved to the ICU due to worsening respiratory status. He is now intubated and sedated. Cannot do ROS. Objective Data Objective Data Vital Signs: Vital Signs Temp Pulse Resp BP Pulse Ox 97.5 F L 104 H 52 H 157/76 H 90 06/24/21 11:45 06/24/21 12:24 06/24/21 12:24 06/24/21 11:45 06/24/21 12:24 Oxygen Flow Rate (L/min) 60 Oxygen Delivery Method Bi-pap Weight: 73.5 kg Body Mass Index (BMI) 24.9 Intake & Output: Intake and Output for Last 24 Hours 06/22/21 06/23/21 06/24/21 23:59 23:59 23:59 Intake Total 740.00 / 740.00 450 / 450 250.00 / 250.00 Output Total 650 / 650 275 / 375 1300 / 1300 Balance 90.00 / 90.00 175 / 75 -1050.00 / -1050.00 Lab / Micro Data Result Diagrams: 06/20/21 08:24 06/24/21 06:40 Labs: Laboratory Results - last 24 hr 06/23/21 17:12: POC Glucose 212 H 06/23/21 21:42: POC Glucose 212 H 06/24/21 06:36: POC Glucose 187 H 06/24/21 06:40: Sodium 147 H, Potassium 3.7, Chloride 116 H, Carbon Dioxide 27.0, Anion Gap 4 L, BUN 52 H, Creatinine 1.73 H, Estim Creat Clear Calc 36.33, Est GFR (MDRD) Af Amer 50 L, Est GFR (MDRD) Non-Af 41 L, BUN/Creatinine Ratio 30.1 H, Glucose 208 H, Calcium 8.2 L 06/24/21 06:40: APTT 99.8 H* 06/24/21 06:40: B-Natriuretic Peptide 538.7 H 06/24/21 06:40: Total Creatine Kinase 21 L, Triglycerides 185 06/24/21 11:40: POC Glucose 152 H Micro: Microbiology 06/14/21 17:08 Blood Culture (Wb) - Anticubital Right Blood Culture - Final No growth in 5 days. 06/14/21 15:30 Blood Culture (Wb) - Anticubital Left Blood Culture - Final No growth in 5 days. 06/17/21 18:00 Urine, Clean Catch Streptococcus pneumoniae Antigen (M - Final 06/17/21 17:55 Urine Catheter - Catheter Legionella Antigen - Final Radiography Diagnostic Testing: Radiology Impression Chest X-Ray 06/23/21 13:40 IMPRESSION: There has been no change in the appearance of the chest since the prior study. Electronically Signed: Neymar Cobb MD at 18:27 EST , Service support , Chest X-Ray 06/24/21 14:10 IMPRESSION: The tip of the endotracheal tube is at 4.6 times approximately constanza. The tip of the orogastric tube is just distal to the gastroesophageal junction. Persistent bilateral infiltrates although there has been improvement as compared to prior study. Electronically Signed: Rafy Candelaria MD at 14:36 EST , Service support , Physical Exam Narrative General: Sedated on mechanical ventilator. HEENT: Normocephalic, atraumatic. Intubated. Mucous membranes moist. Heart: Normal S1, S2. No rubs or murmurs. Lungs: Coarse breath sound to auscultation bilaterally. Abdomen: Normal bowel sound, soft, nontender, no guarding or rebound. Extremity: No clubbing, cyanosis or edema. Assessment & Plan Assessment/Plan (1) JARRED (acute kidney injury): PLAN: JARRED is likely due to ischemic ATN related to sepsis. Nonoliguric. Serum creatinine peaked at 4.97 mg/dL on 06/17/2021 (creatinine was 2.3 mg/dL on admission, 06/14/2021). There has been a gradual improvement of renal function since 06/17/2021. Renal function has continued to improve in the last 24 hours despite worsening respiratory status. Serum creatinine is now 1.73 mg/dL. There is no need for [employer] WAFER INSPECTOR since renal function is improving. Continue to hold lisinopril. Recheck renal function tomorrow. Current medications are reviewed and are appropriately dosed for his estimated creatinine clearance. Patient may need small fluid bolus tomorrow if appetite not improved (2) Chronic kidney disease, stage 3a: PLAN: Baseline serum creatinine is 1.5 mg/dL in February 2021. The patient likely has underlying diabetic kidney disease. Okay to place PICC line from my standpoint. (3) HTN (hypertension): PLAN: We are holding lisinopril because of JARRED. Continue to follow blood pressures. Patient is on Toprol 100 mg. Blood pressures were low on admission, improving since admission. 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 The patient is now in ICU and was intubated on 06/24/2021.
[2021-06-24 15:27] LABS: Procalcitonin 0.42 ng/mL (0.00-0.09)
[2021-06-24 15:40] LABS: Partial Thromboplast Time 54.3 Seconds (24.1-36.2)
[2021-06-24 15:46] LABS: Allen Test Positive; Base Excess -6 mmol/L (-2 to +2); Bicarbonate 22.2 mmol/L (22-26); Blood Gas Specimen Type ART; FI02 100; Mode AC; O2 Delivery Device Adult Vent; PEEP 16; PO2 60 mmHG (75-100); RR 14; SITE L Radial; SO2 83 % (95-99); Total Carbon Dioxide 24 mmol/L; Vt 450; pCO2 61.2 mmHg (35-45); pH 7.17 (7.35-7.45)
[2021-06-24] MEDS: Phenylephrine 10 MG/ML Vial IV (15:55)
[2021-06-24] MEDS: Acetaminophen 650 MG/20 ML UDC GT (16:07)
--- NOTE | 2021-06-24 16:23 | PHA.PHARE_ITS ---
Consult Pharmacy has been consulted to manage selected antiobiotic: Vancomycin Type of Consult: New start Labs: Sodium 147 mmol/L (136-145) H 06/24/21 06:40 Potassium 3.7 mmol/L (3.5-5.1) 06/24/21 06:40 Chloride 116 mmol/L (98-107) H 06/24/21 06:40 Carbon Dioxide 27.0 mmol/L (21.0-32.0) 06/24/21 06:40 Anion Gap 4 (5-15) L 06/24/21 06:40 BUN 52 mg/dL (7-18) H 06/24/21 06:40 Creatinine 1.73 mg/dL (0.70-1.30) H 06/24/21 06:40 Est GFR (MDRD) Af Amer 50 mL/min (>60) L 06/24/21 06:40 Est GFR (MDRD) Non-Af 41 mL/min (>60) L 06/24/21 06:40 BUN/Creatinine Ratio 30.1 RATIO (10-20) H 06/24/21 06:40 Glucose 208 mg/dL (74-106) H 06/24/21 06:40 Microbiology: Microbiology 06/14/21 17:08 Blood Culture (Wb) - Anticubital Right Blood Culture - Final No growth in 5 days. 06/14/21 15:30 Blood Culture (Wb) - Anticubital Left Blood Culture - Final No growth in 5 days. 06/17/21 18:00 Urine, Clean Catch Streptococcus pneumoniae Antigen (M - Final 06/17/21 17:55 Urine Catheter - Catheter Legionella Antigen - Final Weight used for dosin.5 kg Estimated Creatinine Clearance: 36 ML/MIN Goal Trough: 15-20 mcg/mL Pharmacy Plan for Drug Dosing: Give initial loading dose (25mg/kg) of 1750mg IV x1, then continue with 1000mg IV q24h per [facility] dosing protocol. Will check a trough level before the 3rd total dose. Pharmacy Service will continue to monitor and adjust dosing as required. Follow-Up Labs: Trough Vancomycin Labs to be done on [date and time ordered]: 06/26/21 15:30
[2021-06-24] MEDS: Lactated Ringers 1,000 ML 999 ML IV (16:35)
[2021-06-24 17:12] LABS: M R Staph aureus DNA By PCR Negative (Negative); Probe Check PASS; Specimen Processing Control PASS
--- NOTE | 2021-06-24 17:18 | PCM.DEATH ---
Preliminary Cause of Preliminary Cause of Preliminary Cause of : Covid 19 pneumonia Principle Diagnosis Problem List: Active and Suspected Problems (Updated 06/21/21 @ 23:[address] Guille Fuentes MD) Acute respiratory failure with hypoxia (Acute) COVID-19 (Acute) CVA (cerebral vascular accident) (Acute) JARRED (acute kidney injury) (Acute) Hospital Course Patient is a 75-year-old gentleman with multiple comorbidities including chronic kidney disease stage III, diabetes mellitus type 2 essential hypertension who presented with progressive shortness of breath generalized weakness and loss of appetite. An assessment of acute hypoxic respiratory failure secondary to COVID-19 pneumonia. Patient had a protracted stay in the hospital requiring high flow oxygen. His respiratory status deteriorated resulting in patient being placed on BiPAP. Patient continued to deteriorate despite being on BiPAP. Patient was subsequently transferred to the intensive care unit where patient was intubated. Patient was found without a pulse was on the vent CODE BLUE was called patient was resuscitated using ACLS protocol for a total of 30 minutes without return of spontaneous circulation. Decision was made to discontinue CPR family informed. Patient was pronounced at 1700 on 06/24/2021. Visit Charges Inpatient E&M: 82357 Disch Hosp
--- NOTE | 2021-06-24 17:40 | CASEMGMT ---
SOCIAL WORK Code Blue Responded to Code Blue, patient . Family at bedside. Emotional support provided. This worker to remain available for needs. Trace Moody, CMV DRIVER, NATURAL [employer] TECHNICIAN
--- NOTE | 2021-06-24 18:52 | NURSING ---
1330 Dr stanley at bedside with this rn and RT paula for intubation 1346 4mg versed given IVP 1349 20mg etomidate 1351 7.[address] stanley 24 @ lip positive color change Breath sounds equal bilat 1351 100mg succs given IVP [address] stanley CXray ordered
== END 2021-06-24 17:00 | DRG 208 ==
LOC: ED 18:47 → PCU 19:35 → ICU 06-24 12:11
PROVIDERS: Hospitalist; Internal Medicine Critical Care Medicine; Internal Medicine Nephrology; Nurse Practitioner Adult Health; Admitting Provider Family Medicine; Emergency Provider Emergency Medicine; PCP Internal Medicine Hematology & Oncology; Visit Provider Internal Medicine
DX: U07.1 COVID-19 (principal); G93.41 Metabolic encephalopathy; J96.01 Acute respiratory failure with hypoxia; I50.21 Acute systolic (congestive) heart failure; J12.82 Pneumonia due to coronavirus disease 2019; N17.0 Acute kidney failure with tubular necrosis; R47.01 Aphasia; I13.0 Hypertensive heart and chronic kidney disease with heart failure and stage 1 through stage 4 chronic kidney disease, or unspecified chronic kidney disease; E87.6 Hypokalemia; K21.9 Gastro-esophageal reflux disease without esophagitis; E78.5 Hyperlipidemia, unspecified; Z23 Encounter for immunization; C61 Malignant neoplasm of prostate; R13.10 Dysphagia, unspecified; N18.31 Chronic kidney disease, stage 3a; E11.22 Type 2 diabetes mellitus with diabetic chronic kidney disease; E78.00 Pure hypercholesterolemia, unspecified; H54.62 Unqualified visual loss, left eye, normal vision right eye; H91.93 Unspecified hearing loss, bilateral; M81.0 Age-related osteoporosis without current pathological fracture; Z66 Do not resuscitate; Z83.3 Family history of diabetes mellitus; Z97.4 Presence of external hearing-aid; Z95.5 Presence of coronary angioplasty implant and graft
CPT/HCPCS: 31500; 31720; 36415; 36569; 36600; 70450; 70544; 70547; 70551; 71045; 74230; 76770; 80048; 80053; 80061; 80069; 81001; 82140; 82550; 82570; 82607; 82803; 82962; 83605; 83880; 84145; 84300; 84443; 84478; 84484; 85025; 85027; 85379; 85610; 85730; 87040; 87070; 87077; 87086; 87186; 87205; 87426; 87449; 87641; 92526; 92610; 92611; 92950; 93005; 93306; 94002; 94003; 94660; 94667; 94668; 94762; 97110; 97162; 97166; 97530; 97535; 97802; 99251; 99282; 99285; G0008; J7030; J7040; J7050; J7120; 90686; A4216; G0463; J1940; J3010; J3490